=== PATIENT | female | born 1950 | race Caucasian/White ===

== ENCOUNTER 2021-04-26 11:16 | Inpatient (IN) | payer OTHER ==
[~2021-04-26] VITALS: Ht 157.5 cm; Wt 55.9 kg
[2021-04-26 11:56] LABS: BASOPHILS ABSOLUTE AUTO 0.02 K/mm3 (0.00-0.23); BASOPHILS PERCENT AUTO 0 % (0-2); EOSINOPHILS ABSOLUTE AUTO 0.01 K/mm3 (0.00-0.68); EOSINOPHILS PERCENT AUTO 0 % (0-6); Hematocrit 38.9 % (33.0-51.0); Hemoglobin 13.1 g/dL (11.5-16.0); IMMATURE GRAN ABSOLUTE AUTO 0.01 K/mm3 (0.00-0.10); IMMATURE GRAN PERCENT AUTO 0 % (0-1); LYMPHOCYTES PERCENT AUTO 17 % (21-46); MONOCYTES ABSOLUTE AUTO 0.34 K/mm3 (0.16-1.47); MONOCYTES PERCENT AUTO 6 % (4-13); Mean Corpuscular HGB 29.7 pg (26.0-34.0); Mean Corpuscular HGB Conc 33.7 g/dL (31.5-36.5); Mean Corpuscular Volume 88 fL (80-100); Mean Platelet Volume 9.8 fL (9.1-12.4); NEUTROPHILS ABSOLUTE AUTO 4.38 K/mm3 (1.96-9.15); NEUTROPHILS PERCENT AUTO 76 % (41-73); Platelet Count 270 K/mm3 (150-400); RDW Coefficient Variation 13.1 % (11.7-14.2); RDW Standard Deviation 42.6 fL (35.1-46.3); Red Blood Cell Count 4.41 M/mm3 (3.80-5.20); White Blood Cell Count 5.76 K/mm3 (4.00-11.30)
[2021-04-26 12:17] LABS: Alanine Aminotransfer (ALT/SGP 16 U/L (12-78); Albumin, Blood 3.8 g/dL (3.4-5.0); Alk Phos 65 U/L (50-136); Anion Gap 8 mmol/L (6-16); Aspartate Aminotrans (AST/SGOT 18 U/L (12-37); Bilirubin, Total 0.4 mg/dL (0.1-1.0); Blood Urea Nitrogen 15 mg/dL (8-24); Bun/Creatinine Ratio 20.2 (12.0-20.0); CO2, Blood 26 mmol/L (21-32); Calcium, Blood 9.5 mg/dL (8.5-10.1); Chloride, Blood 105 mmol/L (98-108); Creatinine, Blood 0.74 mg/dL (0.40-1.00); Glomerular Filtration Rate >60 (60-); Glucose, Blood 110 mg/dL (70-99); Potassium, Blood 3.5 mmol/L (3.5-5.5); Sodium, Blood 139 mmol/L (136-145); Total Protein, Blood 7.8 g/dL (6.4-8.2)
[2021-04-26 12:19] LABS: International Normalized Ratio 1.02; Prothrombin Time Results 10.7 Sec (9.7-11.5)
[2021-04-26] MEDS ORDERED: ZINC50 M3 PO (16:34)
[2021-04-26] MEDS ORDERED: MULVITA PO (16:35)
--- NOTE | 2021-04-26 19:15 | NUR ---
Shift Summary, The patient came to the med floor this afternoon. She is A/OX4 TO PERSON, PLACE, TIME OR EVENT, The patient is pleasent and cooperative with care. The patient has right sided weakness r/t CVA. She is bed bound. but has sensation in her right arm and right leg. The patient is NPO until speech therapy can is consulted. She had 390 of urine per bladder scan and the patient was able to urinate with 2 prsn assist. The patient denied any chest pain, SOB or pain. There were no acute changes after recieving her on the medical floor.
--- NOTE | 2021-04-27 03:57 | NUR ---
RECEIVED PT IN BED AAOX3. SHE DENIES PAIN. RIGHT ARM FLACCID. WEAKNESS TO RIGHT LEG. PT C/O OF DIFFICULTY URINATING AND DISCOMFORT WHEN SHE TRIES TO VOID. DR. JORDAN MADE AWARE. LAZO INSERTED PER ORDER. 400 CC OF CLEAR YELLOW URINE DRAINED. URINE SPECIMEN COLLECTED AND SENT TO LAB. CALL LIGHT WITHIN REACH. NO CHANGE IN STATUS NOTED. TURNED AND REPOSITIONED FOR COMFORT.
[2021-04-27 04:19] LABS: Source, Urine Catheter
[2021-04-27 04:28] LABS: Bilirubin, Urine Neg (Neg); Blood, Urine 1+ (Neg); Glucose Qualitative, Urine Neg (Neg); Ketones, Urine 4+ (Neg); Leukocyte Esterase, Urine Neg (Neg); Nitrite, Urine Neg (Neg); Protein, Urine 1+ (Neg); Urobilinogen, Urine NORM (Normal)
[2021-04-27 04:54] LABS: Appearance, Urine Clear (Clear); Color, Urine Yellow (P-Yellow)
[2021-04-27 04:55] LABS: Amorphous Light (0-Heavy); Bacteria Not Seen /hpf; Red Blood Cells, Urine 0-2 /hpf (0-2); Squamous Epithelial Cells Not Seen /hpf (Few); White Blood Cells, Urine Not Seen /hpf (0-5)
[2021-04-27 05:05] LABS: BASOPHILS ABSOLUTE AUTO 0.04 K/mm3 (0.00-0.23); BASOPHILS PERCENT AUTO 1 % (0-2); EOSINOPHILS ABSOLUTE AUTO 0.02 K/mm3 (0.00-0.68); EOSINOPHILS PERCENT AUTO 0 % (0-6); Hematocrit 33.8 % (33.0-51.0); Hemoglobin 11.4 g/dL (11.5-16.0); IMMATURE GRAN ABSOLUTE AUTO 0.01 K/mm3 (0.00-0.10); IMMATURE GRAN PERCENT AUTO 0 % (0-1); LYMPHOCYTES ABSOLUTE AUTO 1.34 K/mm3 (0.84-5.20); LYMPHOCYTES PERCENT AUTO 22 % (21-46); MONOCYTES ABSOLUTE AUTO 0.43 K/mm3 (0.16-1.47); MONOCYTES PERCENT AUTO 7 % (4-13); Mean Corpuscular HGB 29.9 pg (26.0-34.0); Mean Corpuscular HGB Conc 33.7 g/dL (31.5-36.5); Mean Corpuscular Volume 89 fL (80-100); NEUTROPHILS ABSOLUTE AUTO 4.37 K/mm3 (1.96-9.15); NEUTROPHILS PERCENT AUTO 70 % (41-73); Platelet Count 223 K/mm3 (150-400); RDW Coefficient Variation 13.2 % (11.7-14.2); RDW Standard Deviation 42.9 fL (35.1-46.3); Red Blood Cell Count 3.81 M/mm3 (3.80-5.20); White Blood Cell Count 6.21 K/mm3 (4.00-11.30)
[2021-04-27 05:37] LABS: Anion Gap 7 mmol/L (6-16); Blood Urea Nitrogen 11 mg/dL (8-24); Bun/Creatinine Ratio 20.7 (12.0-20.0); CO2, Blood 24 mmol/L (21-32); Calcium, Blood 8.3 mg/dL (8.5-10.1); Chloride, Blood 109 mmol/L (98-108); Cholesterol 187 mg/dL (50-200); Creatinine, Blood 0.53 mg/dL (0.40-1.00); Glomerular Filtration Rate >60 (60-); Glucose, Blood 92 mg/dL (70-99); HDL Cholesterol 63 mg/dL (>39); LDL/HDL RATIO 1.7; Low Density Lipoprotein Chol 108 mg/dL (0-110); Potassium, Blood 3.1 mmol/L (3.5-5.5); Sodium, Blood 140 mmol/L (136-145); Triglycerides 78 mg/dL (30-160); Very Low Density Lipoprot Chol 15 mg/dL (6-32)
--- NOTE | 2021-04-27 17:16 | NUR ---
SHIFT SUMMARY PATIENT ALERT AND ORIENTED THROUGHOUT THIS SHIFT. PATIENT CONTINUES TO HAVE LITTLE MOVEMENT TO HER RIGHT SIDE. PATIENT WORKED WITH SPEACH THERAPY THIS AM, ADVANCED TO A PUREE'D DIET. PATIENT'S FRIEND IN THE ROOM THIS AFTERNOON TO VISIT. PATIENT MEDICATED 1X THIS AFTERNOON FOR VERY HIGH HYPERTENSION, RESPONDED WELL TO PRN MEDICATION. PATIENT CURRENTLY SITTING UP IN BED WATCHING TELEVISION.
--- NOTE | 2021-04-28 04:45 | NUR ---
EQUAL EMPLOYMENT OPPORTUNITY OFFICER SUMMARY PT A/O X4. DENIES PAIN, NAUSEA, SOB. MEDICATED FOR HTN PER EMAR OVERNIGHT. RIGHT ARM IS FLACID, RIGHT LEG HAS GROSS MOVEMENT. SLURRED SPEECH WITH RIGHT SIDED FACIAL DROOP. LAZO NICOLASA PATENT AND DRAINING TO GRAVITY. NO ACUTE CHANGES. CALL LIGHT WITHIN REACH, WILL CONTINUE TO MONITOR.
[2021-04-28 06:15] LABS: Albumin, Blood 3.2 g/dL (3.4-5.0); Anion Gap 8 mmol/L (6-16); Blood Urea Nitrogen 9 mg/dL (8-24); Bun/Creatinine Ratio 14.1 (12.0-20.0); CO2, Blood 23 mmol/L (21-32); Calcium, Blood 9.1 mg/dL (8.5-10.1); Chloride, Blood 107 mmol/L (98-108); Creatinine, Blood 0.64 mg/dL (0.40-1.00); Glomerular Filtration Rate >60 (60-); Glucose, Blood 91 mg/dL (70-99); Phosphorus, Blood 2.5 mg/dL (2.5-4.9); Potassium, Blood 3.2 mmol/L (3.5-5.5); Sodium, Blood 138 mmol/L (136-145)
--- NOTE | 2021-04-28 17:17 | NUR ---
SHIFT SUMMARY: NO ACUTE EVENTS. NO EVENTS ON TELEMETRY, SR 80'S. NEURO EXAM STABLE; R FACIAL DROOP, TONGUE DEVIATES TO THE RIGHT, R ARM FLACCID, SPEECH SLURRED. DOES NOT LIKE PUREED FOOD. HYPERTENSIVE 190/100'S; MEDICATED WITH HYDRALAZINE X 2, BP DECREASED TO 140/90'S. LAZO DRAINING YELLOW URINE. DENIED PAIN. WORKED WITH PHYSICAL THERAPY, WAS ABLE TO MARCH IN PLACE A BIT PER THERAPIST. HAD VISIT FROM FRIEND THIS AFTERNOON.
--- NOTE | 2021-04-29 03:38 | NUR ---
SHIFT SUMMARY PATIENT HAS R SIDED FACIAL DROOP AND HER R ARM IS FLACCID. SHE HAS SLURRED SPEECH. PATIENT IS SUCTIONING HERSELF FOR INCREASED SECRETIONS. LAZO DRAINING YELLOW URINE. PATIENT DENIES PAIN. ON TELE WITH SINUS RHYTHM AND 1ST DEGREE BLOCK. NO ACUTE CHANGES. CALL LIGHT WITHIN REACH. PATIENT RESTING AT THIS TIME.
[2021-04-29 04:59] LABS: BASOPHILS ABSOLUTE AUTO 0.04 K/mm3 (0.00-0.23); BASOPHILS PERCENT AUTO 1 % (0-2); EOSINOPHILS ABSOLUTE AUTO 0.04 K/mm3 (0.00-0.68); EOSINOPHILS PERCENT AUTO 1 % (0-6); Hematocrit 36.9 % (33.0-51.0); Hemoglobin 12.6 g/dL (11.5-16.0); IMMATURE GRAN ABSOLUTE AUTO 0.02 K/mm3 (0.00-0.10); IMMATURE GRAN PERCENT AUTO 0 % (0-1); LYMPHOCYTES ABSOLUTE AUTO 1.26 K/mm3 (0.84-5.20); LYMPHOCYTES PERCENT AUTO 18 % (21-46); MONOCYTES ABSOLUTE AUTO 0.57 K/mm3 (0.16-1.47); MONOCYTES PERCENT AUTO 8 % (4-13); Mean Corpuscular HGB Conc 34.1 g/dL (31.5-36.5); Mean Corpuscular Volume 88 fL (80-100); NEUTROPHILS PERCENT AUTO 73 % (41-73); Platelet Count 251 K/mm3 (150-400); RDW Coefficient Variation 13.4 % (11.7-14.2); RDW Standard Deviation 43.2 fL (35.1-46.3); White Blood Cell Count 7.13 K/mm3 (4.00-11.30)
[2021-04-29 05:45] LABS: Albumin, Blood 2.9 g/dL (3.4-5.0); Anion Gap 8 mmol/L (6-16); Blood Urea Nitrogen 14 mg/dL (8-24); Bun/Creatinine Ratio 20.6 (12.0-20.0); CO2, Blood 24 mmol/L (21-32); Chloride, Blood 105 mmol/L (98-108); Creatinine, Blood 0.68 mg/dL (0.40-1.00); Glomerular Filtration Rate >60 (60-); Glucose, Blood 103 mg/dL (70-99); Phosphorus, Blood 3.1 mg/dL (2.5-4.9); Potassium, Blood 3.2 mmol/L (3.5-5.5); Sodium, Blood 137 mmol/L (136-145)
--- NOTE | 2021-04-29 18:23 | NUR ---
PT AAOX3 REMAIN STABLE, NO ACTE DISTRESS, DENIES PAIN. LAZO PATENT AND CARE DONE.ASPIRATION PRECAUTION MAINTAINED,ASSISTED NEEDED. PRN HYDRALAZINE GIVEN FOR INCREASED B/P. VISITED WITH FAMILY. TOLERATED ALL MEDICATIONS, CALL LIGHT IN PLACE. WILL CONTINUE TO MONITOR.
--- NOTE | 2021-04-30 02:38 | NUR ---
SHIFT SUMMARY NO ACUTE CHANGES. PT RESTING AT THIS TIME. PT DENIES PAIN. CALL LIGHT WITHIN REACH. SLURRED SPEECH AND R FACIAL DROOP CONTINUES. A&O X 4.
[2021-04-30 07:32] LABS: Albumin, Blood 2.8 g/dL (3.4-5.0); Anion Gap 7 mmol/L (6-16); Blood Urea Nitrogen 17 mg/dL (8-24); Bun/Creatinine Ratio 25.7 (12.0-20.0); CO2, Blood 25 mmol/L (21-32); Chloride, Blood 104 mmol/L (98-108); Creatinine, Blood 0.66 mg/dL (0.40-1.00); Glomerular Filtration Rate >60 (60-); Glucose, Blood 105 mg/dL (70-99); Phosphorus, Blood 3.7 mg/dL (2.5-4.9); Potassium, Blood 3.4 mmol/L (3.5-5.5); Sodium, Blood 136 mmol/L (136-145)
--- NOTE | 2021-04-30 18:43 | NUR ---
PATIENT IS ALERT AND ORIENTED AND COOPERATIVE WITH CARE. RIGHT SIDED DEFICITS. LAZO IS IN PLACE AND DRAINING. BM TODAY USING THE BEDPAN. MEDICATED FOR HYPERTENSION THIS AFTERNOON. HER LAST BP WAS 142/86. WORKED WITH PT AND OT TODAY. WILL CONTINUE TO MONITOR
--- NOTE | 2021-05-01 04:16 | NUR ---
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 PT OT/ ST. Puree diet pt has liquids thin by cup. not really drinking this shift PT has nonprod hacking cough. Hypertensive, PTN hydralazine 10 mg given for SBP 164. On tele monitor SR 67. HAs brumfield cath placed for urinary retention, drained 1200 ml clear yellow urine. PT to wear rt sling upper extremity to prevent subluxation. Stroke positioning. Able to communicate. Planning to dc to stroke rehab unit on DC.
[2021-05-01 05:34] LABS: Albumin, Blood 2.9 g/dL (3.4-5.0); Anion Gap 7 mmol/L (6-16); Blood Urea Nitrogen 17 mg/dL (8-24); Bun/Creatinine Ratio 26.7 (12.0-20.0); CO2, Blood 25 mmol/L (21-32); Calcium, Blood 9.1 mg/dL (8.5-10.1); Chloride, Blood 102 mmol/L (98-108); Creatinine, Blood 0.64 mg/dL (0.40-1.00); Glomerular Filtration Rate >60 (60-); Glucose, Blood 102 mg/dL (70-99); Phosphorus, Blood 3.7 mg/dL (2.5-4.9); Potassium, Blood 3.5 mmol/L (3.5-5.5); Sodium, Blood 134 mmol/L (136-145)
--- NOTE | 2021-05-01 17:07 | NUR ---
SHIFT SUMMARY PATIENT DENIES PAIN, NAUSEA, AND SHORTNESS OF BREATH. PATIENT WORKED WITH PT AND OT. PATIENT UP IN CHAIR TWO ASSIST WITH GAIT BELT AND JULIO WALKER. SLING ON WHEN UP OR RIGHT ARM SUPPORTED WITH PILLOW IN BED. ADEQUATE PO INTAKE, WORKED WITH SPEECH THERAPY TODAY. CLIFTON JERONIMO. PLEASANT AND COOPERATIVE CARE.
--- NOTE | 2021-05-02 03:56 | NUR ---
DR SIFUENTES updated on unable to void bladder scan showed [address] cath x 2 for PVR greater than 350 ml then reinsert brumfield for PVR greater than 350 ml. PT has cough nonproductive, irritates PT cough med rx obtained PRN.
--- NOTE | 2021-05-02 05:33 | NUR ---
PT with acute CVA with RT hemiparesis continues with rt facial droop & flaccid rt UE weak RT LE . UP during day to BSC. Room air, PT has nonprod irritating cough relieved by Robitussin AC. Bladder scanning post brumfield cath removal. Order to straight cath x 2 PVR greater than 350 ml, then reinsert brumfield is PVR still above 350. Incont void x 1 PVR 174. Working with PT OT
--- NOTE | 2021-05-02 16:41 | NUR ---
SHIFT SUMMARY PATIENT MEDICATED X1 FOR COUGH WITH. DENIES NAUSEA AND SHORTNESS OF BREATH. REPORTS ACHES IN RIGHT ARM BUT DECLINES PAIN MEDICATION. WORKED WITH PT/OT. UP TWO ASSIST IN CHAIR WITH GAIT BELT AND HEMIWALKER. FLUIDS ENCOURAGED. PLEASANT AND COOPERATIVE WITH CARE. PENDING IRU PLACEMENT WHEN BED AVAILABLE.
--- NOTE | 2021-05-03 03:48 | NUR ---
SHIFT SUMMARY PATIENT HAD NO ACUTE CHANGES OBSERVED. AXOX 3 AND TWO ASSIST STAND PIVOT TO BSC. TAKES MEDICATION ONE EACH IN APPLESAUCE. RS WEAKNESS. PIV REMAINS INTACT. BATTERY REPAIRER REPORTS NSR 77. DENIES PAIN, SOB, AND N/V. VSS/AFEBRILE. REPORTED COUGH X ONE AND GUAIFENESIN WITH CODEINE GIVEN PER EMAR. PATIENT VOIDING T/O SHIFT. CALL LIGHT IN REACH. BED IN LOWEST POSITION. WILL CONTINUE TO MONITOR UNTIL DAY SHIFT NURSE ASSUMES CARE.
--- NOTE | 2021-05-03 17:36 | NUR ---
PT AOX3 AND COOPERATIVE OF CARE. PT SEEMS VERY POSITIVE AND READY TO HELP STAND WITH HER TRANSFERS AND WORK WITH STAFF. PT WAS UP IN CHAIR WITH GAITBELT AND TOLERATED WELL. BLADDER SCAN POST VOID WAS 96 , PT IS INCONTENT AT THIS TIME. CALL LIGHT WITHIN REACH WILL CONTINUE TO MONITOR.
--- NOTE | 2021-05-04 03:47 | NUR ---
SHIFT SUMMARY PATIENT HAD NO ACUTE CHANGES OBSERVED. AXOX 3 AND TWO ASSIST TO BSC. RS WEAKNESS. PIV REMAINS INTACT. SHEET METAL MECHANIC REPORTS NSR W/ST ELEVATED @ 77. TAKES MEDICATION ONE EACH IN APPLESAUCE. DENIES PAIN, SOB, AND N/V. VSS/AFEBRILE. COOPERATIVE WITH CARE. CALL LIGHT IN REACH. BED IN LOWEST POSITION. WILL CONTINUE TO MONITOR UNTIL DAY SHIFT NURSE ASSUMES CARE.
--- NOTE | 2021-05-04 18:19 | NUR ---
SHIFT SUMMARY PATIENT IS A/O X3, PLEASANT AND COOPERATIVE WITH CARE. PATIENT IS A 2 PERSON STAND PIVOT ASSIST FROM THE BED TO THE CHAIR, AND ICONTINENT AT THIS TIME. ON RA, PATIENT WORKED WITH PHYSICAL THERAPY, OCCUPATIONAL THERAPY, AND SPEECH THERAPY THIS SHIFT. PATIENT IS AWAITING APPROVAL FOR AN IRU FOR STRENGHTENING AND REHAB. NO ACUTE CHANGES THIS SHIFT THIS NURSE WILL CONTINUE TO CARE FOR PATIENT UNTIL REPORT IS GIVEN TO ONCOMING NURSE.
--- NOTE | 2021-05-05 04:34 | NUR ---
SUMMARY NO NEW ISSUES NOTED. PT SLEPT WELL T/O SHIFT. PT HAD NOTED VOIDS DURING SHIFT. PT CURRENTLY SLEEPING IN NO DISTRESS. CALL LIGHT IN REACH AND BED ALARM ON.
--- NOTE | 2021-05-05 17:12 | NUR ---
SHIFT SUMMARY PATIENT IS A/O X4, PLEASANT AND COOPERATIVE WITH CARE. PATIENT STILL HAS RASH PRESENT ON UPPER BACK. LOTION APPLIED FOR COMFORT. PATIENT'S DAUGHTER WAS AT THE BEDSIDE THIS AFTERNOON. PATIENT RECEIVED BOWEL CARE THIS SHIFT. NO ACUTE CHANGES FOR THE PATIENT THIS SHIFT VITAL SIGNS STABLE. PATIENT IS STILL WAITING ON PLACEMENT AT AN IRU. THIS NURSE WILL CONTINUE TO CARE FOR THE PATIENT UNTIL SHIFT REPORT IS GIVEN TO THE ONCOMING NURSE.
--- NOTE | 2021-05-06 03:27 | NUR ---
SHIFT SUMMARY NO ACUTE CHANGES TO REPORT THIS SHIFT. RIGHT SIDED WEAKNESS REMAINS UNNCHANGED. PT A/OX4 PLESANT WITH CARE, PT HAS DENIED NEEDS T/O SHIFT. BED IN LOWEST POSITION, CALL LIGHT WITHIN REACH.
--- NOTE | 2021-05-06 17:24 | NUR ---
SHIFT SUMMARY PATIENT IS A/O X4, PLEASANT AND COOPERATIVE WITH CARE. PATIENT IS ON RA, TWO PERSON PIVOT WITH A JULIO WALKER, RIGHT SIDED WEAKNESS. NO ACUTE CHANGES THIS SHIFT, VITAL SIGNS STABLE. PATIENT IS WAITING FOR PLACEMENT AT AN IRU, POSSIBLY LEAVING TOMORROW. THIS NURSE WILL CONTINUE TO MONITOR THE PATIENT UNTIL REPORT IS GIVEN TO ONCOMING NURSE.
[2021-05-06 22:07] LABS: ALDOS/RENIN RATIO 20.1 (0.0-30.0); ALDOSTERONE 5.3 ng/dL (0.0-30.0)
--- NOTE | 2021-05-07 04:33 | NUR ---
VITAL SIGNS STABLE. NO COMPLAINTS OF PAIN. NO NEW ISSUES IDENTIFIED. SAFETY MEASURES IN PLACE. WILL CONTINUE TO MONITOR PATIENT UNTIL CARE IS ASSUMED BY DAY NURSE
--- NOTE | 2021-05-08 06:17 | NUR ---
SHIFT SUMMARY: VS WNL, AFBRILE. NO PAIN. RIGHT SIDE WEAKNESS. ELEVATES RUE ON PILLOW WHEN IN BED. ABLE TO USE JULIO WALKER WITH SBA. INCONTIENT OF URINE. SLEPT WELL T/O THE NIGHT. NO FURTHER CHANGES TO REPORT. CALL LIGHT IS IN REACH.
--- NOTE | 2021-05-08 17:55 | NUR ---
Alert and oriented x3 , able to make needs known , speach is slurred. vital signs are stable ,SBP in 150s, continue on hypertensive medications , no adverse effects noted. Right side weakness noted. worked with PT/ OT for strength and endurance. Used John walkwer for transfer with SBA. Call appropriately and call light within reach . Continue on monitor.
--- NOTE | 2021-05-08 19:20 | NUR ---
ASSUMED CARE. JEANETH IS DOING WELL, STATES SHE GOT UP IN THE CHAIR TODAY AND USED HER JULIO WALKER. SHE STILL VERY WEAK ON THE RIGHT SIDE BUT IS FOLLOWING PT ORDERS TO HELPING HERSELF GET BETTER. DENIES ANY NEEDS AT THIS TIME. ATTENDS IS DRY. CALL LIGHT IN REACH.
--- NOTE | 2021-05-09 06:24 | NUR ---
SHIFT SUMMARY: JEANETH HAS HAD A VERY GOOD NIGHT. SHE SLEPT WELL. NO ACUTE CHANGES OR CONCERNS. VS WNL. AFEBRILE. NO PAIN OR DISCOMFORT. NO NEW NEURO DEFICITS. BED ALARM ON. CALL LIGHT IN REACH.
[2021-05-09 06:56] LABS: Anion Gap 4 mmol/L (6-16); Blood Urea Nitrogen 19 mg/dL (8-24); Bun/Creatinine Ratio 29.1 (12.0-20.0); CO2, Blood 28 mmol/L (21-32); Calcium, Blood 9.3 mg/dL (8.5-10.1); Chloride, Blood 103 mmol/L (98-108); Creatinine, Blood 0.65 mg/dL (0.40-1.00); Glomerular Filtration Rate >60 (60-); Glucose, Blood 98 mg/dL (70-99); Potassium, Blood 3.9 mmol/L (3.5-5.5); Sodium, Blood 135 mmol/L (136-145)
--- NOTE | 2021-05-09 18:49 | NUR ---
Alert and oriented x 3, able to make needs known.Denies any headache , pain , nausea , chest pain , or dizziness. vital signs are stable. Left side weakness noted. One person assist with ADLS. Used mimi walker for transfer. Pleasant and cooperative. Call appropriately and call light within reach.
--- NOTE | 2021-05-10 04:11 | NUR ---
PT IS PLEASANT. AAO. DENIES PAIN. SLEPT WELL. NO ACUTE CHANGES. NEURO STATUS UNCHANGED. ATTEND IN PLACE. CALL LIGHT WITHIN REACH. VSS.
[2021-05-10] MEDS ORDERED: ASPI81CH PO (15:49)
[2021-05-10] MEDS ORDERED: ATOR40TA PO (15:50)
[2021-05-10] MEDS ORDERED: HYDCHL25 PO (15:50)
[2021-05-10] MEDS ORDERED: LISI20 PO (15:51)
[2021-05-10] MEDS ORDERED: POTCHL20ER PO (15:52)
[2021-05-10 17:03] LABS: Influenza A, PCR NEGATIVE (NEGATIVE); Influenza B, PCR NEGATIVE (NEGATIVE); Resp Syncytial Virus, PCR NEGATIVE (NEGATIVE); SARS-Cov-2 (COVID-19) PCR, MMC NEGATIVE (NEGATIVE)
--- NOTE | 2021-05-10 17:26 | NUR ---
SHIFT SUMMARY NO ACUTE CHANGES THIS SHIFT WITH PATIENT. SHE IS DOING WELL WITH PT AND OT. PT WILL HOPEFULLY BE TRANSFERRED TO IRU TOMORROW AFTERNOON. WILL CONTINUE TO MONITOR.
--- NOTE | 2021-05-11 06:38 | NUR ---
SHIFT SUMMARY PT IS A 70 Y/O FEMALE, ADMITTED FOR AN ACUTE CVA. SHE IS A&O X 4, WITH MILD R-SIDE WEAKNESS AND R FACIAL DROOP NOTED. PT IS 1PA, CONT/INCONTINENT. NO C/O ACUTE PAIN, NAUSEA OR SOB. VITAL SIGNS STABLE. PT SLEPT WELL THROUGH THE NIGHT. NO ACUTE CHANGES IN PT CONDITION NOTED. WILL CONTINUE TO MONITOR AND TREAT PER EMAR UNTIL HAND OFF TO DAY SHIFT RN.
--- NOTE | 2021-05-11 18:05 | NUR ---
SHIFT SUMMARY NO ACUTE CHNAGES THIS SHIFT. PTS DISCHARGED WAS DELAYED BY A DAY, HOPEFULL TO DISCHARGE TOMORROW. WILL CONTINUE TO MONITOR.
--- NOTE | 2021-05-12 06:05 | NUR ---
SHIFT SUMMARY PATIENT ALERT AND ORIENTED. NO COMPLAINTS OF PAIN OR SHORTNESS OF BREATH. SLEPT WELL, NO ACUTE ISSUES OVERNIGHT. CALL LIGHT WITHIN REACH. REPORT GIVEN TO ONCOMING RN.
--- NOTE | 2021-05-12 16:37 | NUR ---
Sat down with pt this morning, and recognized each other right away. In our previous visit, she was actually planning to return home at that time. However, the rehab center in [place] has agreed to take her for inpatient, and this is what the patient wants. She is motivated to get back into the best shape possible. She does not wish to change her POLST at this time. I will remain available.
--- NOTE | 2021-05-12 18:29 | NUR ---
Alert and oriented x3 , able to make needs known. One person assist with ADLS. Denies any pain. No chest pain , dizziness ,headache or nausea reported. Used mimi walker for transfer with one person assist. BP was elevated this morning , however received a new order for norvac 5 mg po daily . Vital signs are stable now 139/94. Continue to monitor.
--- NOTE | 2021-05-13 05:21 | NUR ---
SHIFT SUMMARY PATIENT ALERT AND ORIENTED. NO COMPLAINTS OF PAIN OR SHORTNESS OF BREATH. NO ACUTE ISSUES NOTED OVERNIGHT. SLEPT WELL. CALL LIGHT WITHIN REACH. REPORT GIVEN TO ONCOMING RN.
--- NOTE | 2021-05-13 17:59 | NUR ---
Alert and oriented x3 , able to make needs known. Denies any pain. one person assist with ADLS. Used mimi-walker for transfer with SBA. Vital signs are stable. No changes in LOC.Denies any headache , dizziness and chest pain. Call appropraitely and call light within reach. Continue to monitor.
--- NOTE | 2021-05-14 05:08 | NUR ---
SHIFT SUMMARY PATIENT ALERT AND ORIENTED. HAD NO COMPLAINTS OF PAIN OR SHORTNESS OF BREATH. SLEPT WELL OVERNGIHT. NO ACUTE ISSUES NOTED. BED IN LOWEST POSITION WITH WHEELS LOCKED AND ALARM ON. CALL LIGHT WITHIN REACH. REPROT GIVEN TO ONCOMING RN.
--- NOTE | 2021-05-14 19:21 | NUR ---
Patient is alert and oriented x3 , denies any pain , dizziness and headache. Take pills whole with applesauce. One person assist with ADLS, Used mimi-walker for transfer. Right sided weakness noted and strength is improving. vital signs are stable. Used bedside commode with SBA. Call appropriately and call light within reach. Continue to monitor. Discharged is postponed to friday.
--- NOTE | 2021-05-15 04:10 | NUR ---
BAKER TEST SUMMARY ADMITTED FOR CVA. PT IS FULL CODE. PLAN FOR POSSIBLE PLACEMENT FOR REHAB. PT HAS SOME WEAKNESS WITH FINE MOTOR SKILLS TO THE RIGHT UPPER AND LOWER EXTREMITIES BUT GROSS MOTOR INTACT. PT WITH SOME SLURRED SPEECH AND SOME FACIAL DROOP. SHE HAS BEEN RESTING THROUGHOUT THE NIGHT. IS VERY COOPERATIVE AND HELPFUL WITH HER CARE. NO OTHER CONCERNS THIS SHIFT.
[2021-05-15 08:42] LABS: SARS-Cov-2 (COVID-19) PCR, MMC NEGATIVE (NEGATIVE)
[2021-05-15] MEDS ORDERED: AMLO5 PO (11:06)
[2021-05-15] MEDS ORDERED: FLUT.05NI (11:07)
--- NOTE | 2021-05-15 13:00 | NUR ---
PATIENT WENT TO SURGERY
--- NOTE | 2021-05-15 17:11 | NUR ---
SHIFT SUMMARY PATIENT LAYING IN BED WATCHING TV. ALERT AND ORIENTED. FINE MOTOR WEAKNESS NOTED ON RIGHT SIDE. 1P ASSIST AND USES JULIO-WALKER. TAKES PILLS WHOLE WITH APPLESAUCE. PATIENT VERY HAPPY SHE WAS ABLE TO SHOWER TODAY. WORKED WITH PT TODAY. TOOK IV OUT PER PATIENT REQUEST. PATIENT STATED IV WAS BOTHERING HER AND ASKED IF IT COULD BE TAKEN OUT. VS STABLE. WILL CONTINUE TO MONITOR.
--- NOTE | 2021-05-16 04:14 | NUR ---
ORNAMENTAL PAINTER SUMMARY ADMITTED FOR CVA. PT IS FULL CODE. PT REPORTS INCREASING STRENGTH TO HER RIGHT SIDE. PT IS EXCITED TO GO TO THE REHAB FACILITY IN [place] LATER TODAY. PT HAS NO COMPLAINTS. NO OTHER CONCERNS THIS SHIFT.
--- NOTE | 2021-05-16 14:23 | NUR ---
DISCHARGED AT 1148 WITH INSTRUCTIONS. WHEELCHAIR TRANSPORT TO [facility]. REPORT GIVEN TO RECEIVING NURSE. SENT HOME WITH BELONGINGS. PATIENT FORGET TOOTHBRUSH DEVICE. ATTEMPTED TO CALL PATIENT TO ASK HOW TO SEND FORGOTTEN BELONGING. WILL CONTINUE TO TRY TO CONTACT PATIENT AND FACILTY.
== END 2021-05-16 11:48 | DRG 65 ==
LOC: ER 11:16 → MEDS 15:03 → ENPENDDIS 05-10 18:26 → MEDS 05-16 11:48
PROVIDERS: Family Medicine; Internal Medicine; Nurse Practitioner Acute Care; Physician Assistant; ADMIT Internal Medicine
DX: I63.89 Other cerebral infarction (principal); G81.91 Hemiplegia, unspecified affecting right dominant side; R29.810 Facial weakness; R47.81 Slurred speech; R47.02 Dysphasia; E87.6 Hypokalemia; Z20.822 Contact with and (suspected) exposure to COVID-19; I10 Essential (primary) hypertension; D64.9 Anemia, unspecified; R47.1 Dysarthria and anarthria; I67.2 Cerebral atherosclerosis; Z88.0 Allergy status to penicillin
CPT/HCPCS: 0241U; 36415; 70450; 70496; 70498; 74230; 80048; 80053; 80061; 80069; 81001; 82088; 82947; 83036; 84244; 84443; 85025; 85610; 92507; 92526; 92610; 92611; 93005; 93010; 93306; 96374; 97110; 97112; 97116; 97116-CQ; 97161; 97166; 97530; 97535; 99285-25; A9270; J0360; J1650; J7030; Q9967; U0004

== ENCOUNTER → 2023-11-11 | Outpatient (CLI) | payer OTHER ==
[~2023-11-11] MED LIST: AMLO5 PO; ASPI81CH PO; ATOR40TA PO; FLUT.05NI; HYDCHL25 PO; LISI20 PO; MULVITA PO; POTCHL20ER PO; ZINC50 M3 PO
[2023-11-11 12:50] LABS: BASOPHILS ABSOLUTE AUTO 0.02 K/mm3 (0.00-0.23); BASOPHILS PERCENT AUTO 0 % (0-2); EOSINOPHILS ABSOLUTE AUTO 0.07 K/mm3 (0.00-0.68); EOSINOPHILS PERCENT AUTO 1 % (0-6); Hematocrit 32.3 % (33.0-51.0); Hemoglobin 10.2 g/dL (11.5-16.0); IMMATURE GRAN ABSOLUTE AUTO 0.02 K/mm3 (0.00-0.10); IMMATURE GRAN PERCENT AUTO 0 % (0-1); LYMPHOCYTES ABSOLUTE AUTO 0.75 K/mm3 (0.84-5.20); LYMPHOCYTES PERCENT AUTO 10 % (21-46); MONOCYTES ABSOLUTE AUTO 0.38 K/mm3 (0.16-1.47); MONOCYTES PERCENT AUTO 5 % (4-13); Mean Corpuscular HGB 25.2 pg (26.0-34.0); Mean Corpuscular HGB Conc 31.6 g/dL (31.5-36.5); Mean Corpuscular Volume 80 fL (80-100); Mean Platelet Volume 8.4 fL (9.1-12.4); NEUTROPHILS ABSOLUTE AUTO 6.19 K/mm3 (1.96-9.15); NEUTROPHILS PERCENT AUTO 83 % (41-73); Platelet Count 376 K/mm3 (150-400); RDW Coefficient Variation 17.1 % (11.7-14.2); RDW Standard Deviation 49.6 fL (35.1-46.3); Red Blood Cell Count 4.04 M/mm3 (3.80-5.20); White Blood Cell Count 7.43 K/mm3 (4.00-11.30)
[2023-11-11 12:53] LABS: Bacteria Rare /hpf; Source, Urine Clean Catch; Squamous Epithelial Cells Few /hpf (Few)
[2023-11-11 12:56] LABS: Potassium, Blood 3.3 mmol/L (3.5-5.5)
== END ==
LOC: LAB SHORT 12:37 → LAB 12:37
PROVIDERS: Physician Assistant
DX: R31.9 Hematuria, unspecified (principal); D64.9 Anemia, unspecified
CPT/HCPCS: 80051; 81015; 85025; 87086

== ENCOUNTER 2023-12-09 20:08 | Inpatient (IN) | payer OTHER ==
[~2023-12-09] VITALS: Ht 152.4 cm; Wt 59.0 kg
[~2023-12-09 20:08] MED LIST changes: +AMLODIPINE BESY10 MG PO; +Aspir 8181 MG PO; +CEPH500 PO; +LIPITOR80 MG PO; +PRAZ2 PO
[2023-12-09 20:44] LABS: BASOPHILS ABSOLUTE AUTO 0.03 K/mm3 (0.00-0.23); BASOPHILS PERCENT AUTO 0 % (0-2); EOSINOPHILS ABSOLUTE AUTO 0.06 K/mm3 (0.00-0.68); EOSINOPHILS PERCENT AUTO 1 % (0-6); Hematocrit 24.1 % (33.0-51.0); Hemoglobin 7.6 g/dL (11.5-16.0); IMMATURE GRAN ABSOLUTE AUTO 0.03 K/mm3 (0.00-0.10); IMMATURE GRAN PERCENT AUTO 0 % (0-1); LYMPHOCYTES ABSOLUTE AUTO 1.05 K/mm3 (0.84-5.20); LYMPHOCYTES PERCENT AUTO 11 % (21-46); MONOCYTES ABSOLUTE AUTO 0.63 K/mm3 (0.16-1.47); MONOCYTES PERCENT AUTO 6 % (4-13); Mean Corpuscular HGB 24.8 pg (26.0-34.0); Mean Corpuscular HGB Conc 31.5 g/dL (31.5-36.5); Mean Corpuscular Volume 79 fL (80-100); Mean Platelet Volume 8.2 fL (9.1-12.4); NEUTROPHILS ABSOLUTE AUTO 8.21 K/mm3 (1.96-9.15); NEUTROPHILS PERCENT AUTO 82 % (41-73); Platelet Count 500 K/mm3 (150-400); RDW Coefficient Variation 17.2 % (11.7-14.2); RDW Standard Deviation 49.1 fL (35.1-46.3); Red Blood Cell Count 3.06 M/mm3 (3.80-5.20); White Blood Cell Count 10.01 K/mm3 (4.00-11.30)
[2023-12-09 20:52] LABS: Base Excess Venous -1.5 mmol/L; Bicarbonate Venous 23.6 mmol/L (24.0-30.0); PCO2 Venous 22.4 mmHg (38-42); pH Blood Venous 7.57 (7.34-7.37)
[2023-12-09 21:13] LABS: Albumin, Blood 2.2 g/dL (3.4-5.0); Albumin/Globulin Ratio 0.5 (0.8-1.8); Bilirubin, Total 0.5 mg/dL (0.1-1.0); Bun/Creatinine Ratio 25.8 (12.0-20.0); Calcium, Blood 9.2 mg/dL (8.5-10.1); Creatinine, Blood 0.7 mg/dL (0.40-1.00); Globulin, Blood 4.5 g/dL (2.2-4.0); Potassium, Blood 3.9 mmol/L (3.5-5.5); Total Protein, Blood 6.7 g/dL (6.4-8.2)
[2023-12-09] MEDS ORDERED: CefTRIAXone Sodium 1,000 MG in NS 50 ML IV ONE (22:20)
[2023-12-10] VITALS (35 sets, daily range): BP systolic 95–136; BP diastolic 51–96
[2023-12-10] MEDS ORDERED: Ondansetron HCl 2 MG / ML 2ML Vial IV ONE (00:20)
[2023-12-10] MEDS ORDERED: FentaNYL Citrate 50 MCG/ML 2 ML Injection IV ONE (00:20)
[2023-12-10] MEDS ORDERED: Ondansetron HCl 2 MG / ML 2ML Vial IV PRN (01:00)
[2023-12-10] MEDS ORDERED: Ipratropium/Albuterol SulF 2.5-0.5MG/3 ML Amp INH PRN (01:00)
[2023-12-10 01:48] LABS: Influenza A, PCR NEGATIVE (NEGATIVE); Influenza B, PCR NEGATIVE (NEGATIVE); Resp Syncytial Virus, PCR NEGATIVE (NEGATIVE); SARS-Cov-2 (COVID-19) PCR, MMC NEGATIVE (NEGATIVE)
[2023-12-10 02:11] LABS: International Normalized Ratio 1.03
[2023-12-10 02:28] LABS: BASOPHILS ABSOLUTE AUTO 0.02 K/mm3 (0.00-0.23); BASOPHILS PERCENT AUTO 0 % (0-2); EOSINOPHILS ABSOLUTE AUTO 0.02 K/mm3 (0.00-0.68); EOSINOPHILS PERCENT AUTO 0 % (0-6); Hematocrit 20.7 % (33.0-51.0); Hemoglobin 6.5 g/dL (11.5-16.0); IMMATURE GRAN ABSOLUTE AUTO 0.03 K/mm3 (0.00-0.10); IMMATURE GRAN PERCENT AUTO 0 % (0-1); LYMPHOCYTES ABSOLUTE AUTO 0.88 K/mm3 (0.84-5.20); LYMPHOCYTES PERCENT AUTO 12 % (21-46); MONOCYTES ABSOLUTE AUTO 0.47 K/mm3 (0.16-1.47); MONOCYTES PERCENT AUTO 6 % (4-13); Mean Corpuscular HGB 24.5 pg (26.0-34.0); Mean Corpuscular HGB Conc 31.4 g/dL (31.5-36.5); Mean Corpuscular Volume 78 fL (80-100); Mean Platelet Volume 8.5 fL (9.1-12.4); NEUTROPHILS ABSOLUTE AUTO 5.99 K/mm3 (1.96-9.15); NEUTROPHILS PERCENT AUTO 81 % (41-73); Platelet Count 479 K/mm3 (150-400); RDW Coefficient Variation 17.3 % (11.7-14.2); RDW Standard Deviation 48.9 fL (35.1-46.3); Red Blood Cell Count 2.65 M/mm3 (3.80-5.20); White Blood Cell Count 7.41 K/mm3 (4.00-11.30)
[2023-12-10 02:29] LABS: Albumin/Globulin Ratio 0.5 (0.8-1.8); Bilirubin, Total 0.3 mg/dL (0.1-1.0); Bun/Creatinine Ratio 25.2 (12.0-20.0); Calcium, Blood 8.3 mg/dL (8.5-10.1); Creatinine, Blood 0.63 mg/dL (0.40-1.00); Globulin, Blood 3.9 g/dL (2.2-4.0); Potassium, Blood 3.9 mmol/L (3.5-5.5); Total Protein, Blood 5.9 g/dL (6.4-8.2)
[2023-12-10] MEDS ORDERED: Vancomycin HCL 1,250 MG in NS 250 ML IV ONE (03:00)
[2023-12-10] MEDS ORDERED: Benzonatate 100 MG Cap PO PRN (03:30)
--- NOTE | 2023-12-10 03:30 | NUR ---
PROVIDER NOTIFICATION S/W DR. HOFF REGARDING PT COUGH. PRN TESSALON ORDERED. NOTIFIED MD OF NEED FOR BLOOD CONSENT. MD TO APPEAR AT BEDSIDE SOON POSSIBLE.
[2023-12-10] MEDS ORDERED: NS 500 ML IV SCH (05:00)
[2023-12-10] MEDS ORDERED: MethylPREDNISolone Sod Succ 125 MG Vial IV ONE (05:50)
--- NOTE | 2023-12-10 06:20 | NUR ---
SHIFT SUMMARY PATIENT ADMITTED FROM ED AT APPROX. 0200 FOR ATYPICAL PNEUMONIA WITH HEMOPTYSIS. SHE IS ALERT & ORIENTED x4, ABLE TO APPROPRIATELY COMMUNICATE HER NEEDS, THOUGH SHE IS A BIT HARD OF HEARING. VITALS STABLE. HGB 6.5 THIS AM REQUIRING 1 UNIT OF PRBC, TRANSFUSING AT THIS TIME. LUNG SOUNDS COARSE/RHONCHI, BLOODY SPUTUM, SUCTION SETUP AT BEDSIDE. PT ABLE TO SELF SUCTION. 12L O2 VIA OXIMIZER, FAILED ATTEMPTS TO WEAN O2 DOWN. PUREWICK AND ATTENDS IN PLACE. REDDENED/OPEN AREA ON BUTTOCKS, PICTURES IN CHART, MEPILEX APPLIED. SCATTERED BRUISING NOTED, PATIENT MENTIONS FALLING MULTIPLE TIMES AT HOME. USES A WALKER AT BASELINE.
[2023-12-10] MEDS ORDERED: Cefepime HCl 1,000 MG in NS 100 ML IV SCH (08:00)
[2023-12-10] MEDS ORDERED: Propofol 10mg/ml 20 ml Vial (Procedural) IV ONE (10:19)
[2023-12-10] MEDS ORDERED: LevoFLOXacin 500MG/D5W 100ML 100 ML IV SCH (10:30)
[2023-12-10 10:57] LABS: BASOPHILS ABSOLUTE AUTO 0.02 K/mm3 (0.00-0.23); BASOPHILS PERCENT AUTO 0 % (0-2); EOSINOPHILS PERCENT AUTO 0 % (0-6); Hematocrit 27.6 % (33.0-51.0); Hemoglobin 9.1 g/dL (11.5-16.0); IMMATURE GRAN ABSOLUTE AUTO 0.02 K/mm3 (0.00-0.10); IMMATURE GRAN PERCENT AUTO 0 % (0-1); LYMPHOCYTES ABSOLUTE AUTO 0.52 K/mm3 (0.84-5.20); LYMPHOCYTES PERCENT AUTO 6 % (21-46); MONOCYTES ABSOLUTE AUTO 0.08 K/mm3 (0.16-1.47); MONOCYTES PERCENT AUTO 1 % (4-13); Mean Corpuscular HGB 26.1 pg (26.0-34.0); Mean Corpuscular Volume 79 fL (80-100); Mean Platelet Volume 8.6 fL (9.1-12.4); NEUTROPHILS ABSOLUTE AUTO 8.11 K/mm3 (1.96-9.15); NEUTROPHILS PERCENT AUTO 93 % (41-73); Platelet Count 505 K/mm3 (150-400); RDW Standard Deviation 48.7 fL (35.1-46.3); Red Blood Cell Count 3.49 M/mm3 (3.80-5.20); White Blood Cell Count 8.75 K/mm3 (4.00-11.30)
[2023-12-10] MEDS ORDERED: Vancomycin HCL 750 MG in NS 100 ML IV SCH (17:00)
[2023-12-10 17:22] LABS: Acinetobacter baumannii DNA Not Detected copy/mL (NOT DETECT); Enterobacter cloacae DNA Not Detected copy/mL (NOT DETECT); Escherichia coli DNA Not Detected copy/mL (NOT DETECT); Haemophilus influenzae DNA Not Detected copy/mL (NOT DETECT); Klebsiella aerogenes DNA Not Detected copy/mL (NOT DETECT); Klebsiella oxytoca DNA Not Detected copy/mL (NOT DETECT); Klebsiella pneumoniae DNA Not Detected copy/mL (NOT DETECT); Moraxella catarrhalis DNA Not Detected copy/mL (NOT DETECT); Proteus sp DNA Not Detected copy/mL (NOT DETECT); Pseudomonas aeruginosa DNA Not Detected copy/mL (NOT DETECT); Serratia marcescens DNA Not Detected copy/mL (NOT DETECT); Staphylococcus aureus DNA Not Detected copy/mL (NOT DETECT); Streptococcus agalactiae DNA Not Detected copy/mL (NOT DETECT); Streptococcus pneumoniae DNA Not Detected copy/mL (NOT DETECT); Streptococcus pyogenes DNA Not Detected copy/mL (NOT DETECT)
[2023-12-10 17:23] LABS: Adenovirus DNA Not Detected (NOT DETECT); Chlamydia pneumonia Not Detected (NOT DETECT); Human Coronavirus RNA Not Detected (NOT DETECT); Human Metapneumovirus RNA Not Detected (NOT DETECT); Influenza virus A RNA Not Detected (NOT DETECT); Influenza virus B RNA Not Detected (NOT DETECT); Legionella pneumophila Not Detected (NOT DETECT); Mycoplasma pneumoniae Not Detected (NOT DETECT); Parainfluenza virus RNA Not Detected (NOT DETECT); Respiratory syncytial Vir RNA Not Detected (NOT DETECT); Rhinovirus+Enterovirus RNA Not Detected (NOT DETECT)
--- NOTE | 2023-12-10 18:07 | NUR ---
Shift summary. Pt rested in bed throughout shift. Switched to Airvo this morning, 40L, 52% Fi02. Pt A&O, pleasant and cooperative with care. Peripheral IVs removed and PG placed this afternoon, JENS. NS tko. No acute events this shift. See chart for further details.
[2023-12-10] MEDS ORDERED: Lactobacil 2-S.Thermo-Bifido 1 1 Cap PO SCH (21:00)
[2023-12-11] VITALS (13 sets, daily range): BP systolic 90–128; BP diastolic 60–99
[2023-12-11 04:10] LABS: BASOPHILS ABSOLUTE AUTO 0.01 K/mm3 (0.00-0.23); BASOPHILS PERCENT AUTO 0 % (0-2); EOSINOPHILS PERCENT AUTO 0 % (0-6); Hematocrit 22.3 % (33.0-51.0); Hemoglobin 7.2 g/dL (11.5-16.0); IMMATURE GRAN ABSOLUTE AUTO 0.03 K/mm3 (0.00-0.10); IMMATURE GRAN PERCENT AUTO 0 % (0-1); LYMPHOCYTES ABSOLUTE AUTO 0.74 K/mm3 (0.84-5.20); LYMPHOCYTES PERCENT AUTO 10 % (21-46); MONOCYTES ABSOLUTE AUTO 0.35 K/mm3 (0.16-1.47); MONOCYTES PERCENT AUTO 5 % (4-13); Mean Corpuscular HGB 25.9 pg (26.0-34.0); Mean Corpuscular HGB Conc 32.3 g/dL (31.5-36.5); Mean Corpuscular Volume 80 fL (80-100); Mean Platelet Volume 8.9 fL (9.1-12.4); NEUTROPHILS PERCENT AUTO 85 % (41-73); Platelet Count 444 K/mm3 (150-400); RDW Standard Deviation 50.1 fL (35.1-46.3); Red Blood Cell Count 2.78 M/mm3 (3.80-5.20); White Blood Cell Count 7.23 K/mm3 (4.00-11.30)
[2023-12-11 04:43] LABS: Albumin, Blood 1.9 g/dL (3.4-5.0); Albumin/Globulin Ratio 0.5 (0.8-1.8); Bilirubin, Total 0.4 mg/dL (0.1-1.0); Bun/Creatinine Ratio 34.4 (12.0-20.0); C-REACTIVE PROTEIN, EXT RANGE 17.7 mg/dL (0.000-0.300); Calcium, Blood 8.2 mg/dL (8.5-10.1); Creatinine, Blood 0.73 mg/dL (0.40-1.00); Globulin, Blood 4.1 g/dL (2.2-4.0); Magnesium, Blood 1.8 mg/dL (1.6-2.4); Phosphorus, Blood 3.5 mg/dL (2.5-4.9); Potassium, Blood 4.4 mmol/L (3.5-5.5)
--- NOTE | 2023-12-11 05:14 | NUR ---
SHIFT SUMMARY ASSUMED CARE OF PATIENT AT 1900. PATIENT APPEARED TO REST WELL THROUGHOUT THE NIGHT, TOLERATING AIRVO. AROUND 0500 THIS AM, PATIENT DESATURATED TO 70'S WHILE BEING CLEANED. FIO2 INCREASED FROM 50% TO 60%. PATIENT SPO2 NOW 91%. NOTED: SHE DOES NOT TOLERATE MUCH ACTIVITY/LAYING FLAT. LUNG SOUNDS FINE/COARSE CRACKLES. PERSISTENT COUGH, LESS PRODUCTIVE THAN PREVIOUS SHIFT. NO HEMOPTYSIS NOTED THIS SHIFT, HGB THIS AM 7.2.
[2023-12-11 08:25] LABS: BASOPHILS ABSOLUTE AUTO 0.01 K/mm3 (0.00-0.23); BASOPHILS PERCENT AUTO 0 % (0-2); EOSINOPHILS PERCENT AUTO 0 % (0-6); Hematocrit 22.9 % (33.0-51.0); Hemoglobin 7.5 g/dL (11.5-16.0); IMMATURE GRAN ABSOLUTE AUTO 0.04 K/mm3 (0.00-0.10); IMMATURE GRAN PERCENT AUTO 0 % (0-1); LYMPHOCYTES ABSOLUTE AUTO 0.82 K/mm3 (0.84-5.20); LYMPHOCYTES PERCENT AUTO 9 % (21-46); MONOCYTES ABSOLUTE AUTO 0.39 K/mm3 (0.16-1.47); MONOCYTES PERCENT AUTO 4 % (4-13); Mean Corpuscular HGB 26.2 pg (26.0-34.0); Mean Corpuscular HGB Conc 32.8 g/dL (31.5-36.5); Mean Corpuscular Volume 80 fL (80-100); Mean Platelet Volume 8.4 fL (9.1-12.4); NEUTROPHILS ABSOLUTE AUTO 8.06 K/mm3 (1.96-9.15); NEUTROPHILS PERCENT AUTO 87 % (41-73); Platelet Count 464 K/mm3 (150-400); RDW Coefficient Variation 17.1 % (11.7-14.2); RDW Standard Deviation 49.6 fL (35.1-46.3); Red Blood Cell Count 2.86 M/mm3 (3.80-5.20); White Blood Cell Count 9.32 K/mm3 (4.00-11.30)
[2023-12-11] MEDS ORDERED: LevoFLOXacin 250MG/D5W 50ML 50 ML IV SCH (09:00)
[2023-12-11 17:26] LABS: Vancomycin, Trough 20.8 ug/mL (5.0-10.0)
--- NOTE | 2023-12-11 18:08 | NUR ---
SHIFT SUMMARY PT IS A&OX4, CALLS APPROPRIATELY, AND MAKES HER NEEDS KNOWN. SHE HAS BEEN A Q2 TURN BUT IS VERY FRAGILE WITH ANY MOVEMENT. WITH ACTIVITY, TURNING, COUGHING, THE PT DESATURATES. HER OXYGEN DEMAND CONTINUES TO INCREASE. SHE IS ON THE AIRVO 40L @ 90% CURRENTLY. ICU AND DR. LEE MADE AWARE OF THE INCREASE. DR. LEE STATED THAT THE NEXT STEP WILL BE BIPAP. THE PT IS IN AIRBORNE PRECAUTIONS TO R/O TB. HER WORK OF BREATHING HAS NOT INCREASED. THE PT LOOKS RELAXED IN THE ROOM WHEN SHE IS NOT HAVING A COUGHING FIT. THE PT HAS BEEN SR ON TELE, BP STABLE. SHE HAS A PURWICK DRAINING TO SUCTION. SEE NOTES FOR ANY UPDATES.
--- NOTE | 2023-12-11 19:56 | NUR ---
CONCERN ABOUT DISCHARGE PLANNING THIS RN ANSWERED A PHONE CALL FROM MARCOS VILLALTA. SHE STATED THAT SHE HAS NO RELATIONSHIP WITH THE PT AND THAT SHE IS AWARE OF HIPPA LAWS SO SHE IS NOT LOOKING TO GET INFORMATION BUT INSTEAD WANTED TO SHARE INFORMATION ABOUT THE PT. SHE STATES "JEANETH WAS IN A 20+ YEAR RELATIONSHIP WITH MY GRANDPA'S BROTHER. THEY WERE LIVING IN MY GRANDPA'S GUESTHOUSE WHEN HIS BROTHER LAST YEAR. SHE HAS CONTINUED TO LIVE THERE ALONE AND IS NOT SAFE. MY GRANDPA IS IN HIS 90'S AND HE AND HIS ARE NOT ABLE TO HELP HER. THEY HAD TO CALL AN AMBULANCE TO GET HER UP OFF OF THE FLOOR. SHE IS EITHER GOING TO NEED TO GO SOMEWHERE ELSE OR SHE WILL NEED A 24 HOUR CAREGIVER." SHE IS ASKING THAT CARE MANAGEMENT CONTACT EITHER HERSELF OR HER MOM IF THERE ARE ANY QUESTIONS ABOUT JEANETH'S CURRENT LIVING SITUATION. SHE STATED THAT JEANETH'S ONLY LIVING RELATIVE IS A DAUGHTER WHO IS LOCATED IN [facility]. MARCOS VILLALTA [phone] KAREN MEI [phone]
[2023-12-11] MEDS ORDERED: LORazepam 2 MG/ML 1ML Injection IV ONE (20:25)
[2023-12-11] MEDS ORDERED: Ketorolac Tromethamine 15mg Vial IV PRN (20:25)
--- NOTE | 2023-12-11 20:25 | NUR ---
UPON INITIAL ASSESSEMENT, PATIENT IS VERY UNCOMFORTABLE, COMPLAINING OF SEVERE PAIN IN HER CHEST/LUNGS, TACHYPNEIC WITH RESPIRATIONS 30-40 BREATHS PER MINUTE. PATIENT ASKED RN "CAN YOU GIVE ME SOMETHING TO JUST END IT?" PATIENT EXPRESSING THAT SHE NO LONGER WANTS FULL CARE. RN DISCUSSED OPTIONS WITH PATIENT. PATIENT AGREEABLE TO REVISIT CONVERSATION AFTER PAIN HAS BEEN TREATED. RN NOTIFIED LOCK AND DAM EQUIPMENT REPAIRER. ABG AND PAIN MANAGEMENT ORDERS IN PER NITHIN TEMPLE. INHALATION THERAPIST TO NOTIFY CRITICAL CARE MD FOR POSSIBLE NEED TO TRANSFER TO ICU.
[2023-12-11 20:45] LABS: PCO2 Arterial 30.7 mmHg (35-45); PO2 Arterial 54.9 mmHg (80-100); pH Blood Arterial 7.47 (7.35-7.45)
--- NOTE | 2023-12-11 22:55 | NUR ---
PT ARRIVES TO ICU 5 FROM PCU. REPORT RECEIVED. PT VERY DYSPNEIC. BIPAP IN PLACE 28/04 WITH FIO2 100 PERCENT. REACTIVE TYPE COUGH WITH ANY EXERTION OR TALKING. PT PLEASANT AND COOPERATIVE WITH CARE AND ASSESSMENT. CURRENTLY 94 PERCENT WITH BIPAP. VSS. PT TO ICU 6 AT 2235. SLIDE TRANSFERRED TO BED.
[2023-12-11] MEDS ORDERED: Vancomycin HCL 750 MG in NS 100 ML IV SCH (23:00)
[2023-12-12] VITALS (88 sets, daily range): BP systolic 63–133; BP diastolic 49–94
--- NOTE | 2023-12-12 00:51 | NUR ---
PT HAS REMAINED COMPLIANT WITH BIPAP. HAS MAINTAINED > 90 PERCENT SATURATIONS. VSS. DOES HAVE EXERTIONAL DYSPNEA.
--- NOTE | 2023-12-12 02:55 | NUR ---
ASSUMPTION OF CARE: ASSUMED CARE OF PT AT 0100; REPORT RECIEVED FROM EMRE BAIRD. PT IN BED, DROWSY BY WAKES TO VERBAL STIMULI EASILY AND IS FOLLOWING COMMANDS APPROPRIATELY. PT REMAINS IN BIPAP WITH SETTINGS 16/10, FIO2 90%; SPO2 92< AND PT DENIES SOB AT THIS TIME. LUNG SOUNDS ARE CLEAR T/O WITH DIM BASES. SR ON MONITOR WITH HR 80'S AND SBP 110-120; PT DENIES CHEST PAIN AT THIS TIME. HYPOACTIVE BOWEL TONES NOTED; PT REPORTS RUQ PAIN 4/10, PRN TORADOL PER EMAR. PUREWICK/ATTENDS IN PLACE. PPP X 4, SKIN WARM AND INTACT AND PG TO JENS. NS TKO @ 10 MLS/HR. BED IN LOWEST POSITION AND CALL LIGHT IN REACH.
[2023-12-12 03:39] LABS: ANTI-NUCLEAR AB ANA,IGG ELISA Detected (None Detected)
[2023-12-12 03:45] LABS: BASOPHILS ABSOLUTE AUTO 0.01 K/mm3 (0.00-0.23); BASOPHILS PERCENT AUTO 0 % (0-2); EOSINOPHILS ABSOLUTE AUTO 0.03 K/mm3 (0.00-0.68); EOSINOPHILS PERCENT AUTO 1 % (0-6); Hematocrit 21.5 % (33.0-51.0); IMMATURE GRAN ABSOLUTE AUTO 0.02 K/mm3 (0.00-0.10); IMMATURE GRAN PERCENT AUTO 0 % (0-1); LYMPHOCYTES ABSOLUTE AUTO 0.91 K/mm3 (0.84-5.20); LYMPHOCYTES PERCENT AUTO 14 % (21-46); MONOCYTES ABSOLUTE AUTO 0.28 K/mm3 (0.16-1.47); MONOCYTES PERCENT AUTO 4 % (4-13); Mean Corpuscular HGB 26.5 pg (26.0-34.0); Mean Corpuscular HGB Conc 32.6 g/dL (31.5-36.5); Mean Corpuscular Volume 81 fL (80-100); Mean Platelet Volume 8.5 fL (9.1-12.4); NEUTROPHILS ABSOLUTE AUTO 5.14 K/mm3 (1.96-9.15); NEUTROPHILS PERCENT AUTO 80 % (41-73); Platelet Count 443 K/mm3 (150-400); RDW Coefficient Variation 17.3 % (11.7-14.2); RDW Standard Deviation 51.3 fL (35.1-46.3); Red Blood Cell Count 2.64 M/mm3 (3.80-5.20); White Blood Cell Count 6.39 K/mm3 (4.00-11.30)
[2023-12-12 04:02] LABS: Albumin, Blood 1.8 g/dL (3.4-5.0); Albumin/Globulin Ratio 0.5 (0.8-1.8); Bilirubin, Total 0.3 mg/dL (0.1-1.0); C-REACTIVE PROTEIN, EXT RANGE 8.45 mg/dL (0.000-0.300); Creatinine, Blood 0.57 mg/dL (0.40-1.00); Globulin, Blood 3.8 g/dL (2.2-4.0); Magnesium, Blood 1.6 mg/dL (1.6-2.4); Phosphorus, Blood 2.1 mg/dL (2.5-4.9); Potassium, Blood 3.9 mmol/L (3.5-5.5); Total Protein, Blood 5.6 g/dL (6.4-8.2)
--- NOTE | 2023-12-12 06:08 | NUR ---
SHIFT SUMMARY: MELITA CAMPUZANO CHANGES OVERNIGHT. PT REMAINS ON BIPAP WITH SETTINGS 16/10 AND FIO2 100%. PT TOLERATING REPOSITIONING WELL WITH SMALL FITS OF COUGHING WITH ALL PT CARE. PT'S PAIN RELIEVED WELL WITH PRN TORADOL. PUREWICK REPLACED THIS MORNING; URINE OUTPUT AT 325 MLS. BED LOWERED, CALL LIGHT IN REACH.
[2023-12-12] MEDS ORDERED: Potassium Phosphate Dibasic 20 MM in Dextrose 5% 500 ML IV STA (06:27)
[2023-12-12] MEDS ORDERED: Magnesium Sulf 2 GM/Water 50ML 50 ML IV STA (06:27)
[2023-12-12] MEDS ORDERED: Albumin (Human) 25gm/100ml 100 ML IV ONE (06:30)
[2023-12-12 06:52] LABS: Base Excess Venous -1.3 mmol/L; Bicarbonate Venous 23.4 mmol/L (24.0-30.0); PCO2 Venous 35.7 mmHg (38-42); pH Blood Venous 7.42 (7.34-7.37)
[2023-12-12] MEDS ORDERED: Sodium Phosphate 20 MM in Dextrose 5% 500 ML IV STA (07:14)
[2023-12-12 08:52] LABS: BASOPHILS ABSOLUTE AUTO 0.01 K/mm3 (0.00-0.23); BASOPHILS PERCENT AUTO 0 % (0-2); EOSINOPHILS ABSOLUTE AUTO 0.05 K/mm3 (0.00-0.68); EOSINOPHILS PERCENT AUTO 1 % (0-6); Hematocrit 18.3 % (33.0-51.0); Hemoglobin 6.1 g/dL (11.5-16.0); IMMATURE GRAN ABSOLUTE AUTO 0.03 K/mm3 (0.00-0.10); IMMATURE GRAN PERCENT AUTO 1 % (0-1); LYMPHOCYTES ABSOLUTE AUTO 0.76 K/mm3 (0.84-5.20); LYMPHOCYTES PERCENT AUTO 15 % (21-46); MONOCYTES ABSOLUTE AUTO 0.26 K/mm3 (0.16-1.47); MONOCYTES PERCENT AUTO 5 % (4-13); Mean Corpuscular HGB 26.5 pg (26.0-34.0); Mean Corpuscular HGB Conc 33.3 g/dL (31.5-36.5); Mean Corpuscular Volume 80 fL (80-100); Mean Platelet Volume 8.3 fL (9.1-12.4); NEUTROPHILS PERCENT AUTO 78 % (41-73); Platelet Count 412 K/mm3 (150-400); RDW Coefficient Variation 17.7 % (11.7-14.2); RDW Standard Deviation 51.2 fL (35.1-46.3); White Blood Cell Count 5.11 K/mm3 (4.00-11.30)
[2023-12-12] MEDS ORDERED: MethylPREDNISolone Sod Succ 500 MG in Dextrose 5% 50 ML IV SCH (09:30)
--- NOTE | 2023-12-12 09:30 | NUR ---
INTUBATION 929- 28/06, 100% FIO2. SPO2 88%. DR LEE IN ROOM. 0936- 50 MG PROPOFOL GIVEN. 937- INTUBATED WITH 8.0 CM ETT, 23 CM AT TEETH. SPO2 80%. ETCO2 26. BREATH SOUNDS AUSCULTATED BILATERALLY. 0944 - 50 MCG FENTANYL GIVEN. 947- CONNECTED TO VENTILATOR. ACVC 28/315/15/100%. SPO2 79%. ETCO2 21.
[2023-12-12] MEDS ORDERED: FentaNYL Citrate 50 MCG/ML 2 ML Injection ONE (09:42)
[2023-12-12] MEDS ORDERED: propofoL 100 ML IV ONE (09:42)
[2023-12-12] MEDS ORDERED: MethylPREDNISolone Sod Succ 125 MG Vial IV SCH (10:00)
[2023-12-12] MEDS ORDERED: FentaNYL Citrate 50 MCG/ML 2 ML Injection IV PRN (10:00)
[2023-12-12] MEDS ORDERED: LORazepam 2 MG/ML 1ML Injection IV PRN (10:00)
[2023-12-12] MEDS ORDERED: NS 1,000 ML IV SCH (10:05)
[2023-12-12] MEDS ORDERED: Cetylpyridinium Chloride 1 EA MISC MT SCH (10:05)
[2023-12-12] MEDS ORDERED: propofoL 100 ML IV SCH (10:05)
[2023-12-12 10:37] LABS: GBM, IGG MULTIPLEX BEAD ASSAY 0 AU/mL (0-19); MYELOPEROXIDASE (MPO) AB,IGG 0 AU/mL (0-19); SERINE PROTEINASE 3 PR3 AB,IGG 838 AU/mL (0-19)
[2023-12-12] MEDS ORDERED: NS 1,000 ML IV ONE (11:00)
[2023-12-12] MEDS ORDERED: Thiamine HCl 100 MG Tab PT SCH (11:05)
[2023-12-12] MEDS ORDERED: Multivitamins-Minerals Liquid 15 ML Oral Syringe PT SCH (11:05)
[2023-12-12] MEDS ORDERED: Magnesium Hydroxide Conc 10 ML UDC PT PRN (11:05)
[2023-12-12] MEDS ORDERED: Bisacodyl 10 MG Supp PR PRN (11:05)
[2023-12-12] MEDS ORDERED: Docusate Sodium 100 MG UDC PT PRN (11:05)
[2023-12-12 11:11] LABS: Source, Urine Foley catheter
[2023-12-12] MEDS ORDERED: NS 250 ML IV PRN (11:15)
[2023-12-12] MEDS ORDERED: Cisatracurium Besylate 100 MG in NS 50 ML IV PRN (11:30)
[2023-12-12] MEDS ORDERED: Hydrogen Peroxide 1.5 % Solution MT SCH (12:00)
[2023-12-12 12:03] LABS: International Normalized Ratio 1.11; Prothrombin Time Results 11.8 Sec (9.7-11.5)
[2023-12-12 12:11] LABS: Appearance, Urine Clear (Clear); Bilirubin, Urine Neg (Neg); Blood, Urine 5+ (Neg); Glucose Qualitative, Urine Neg (Neg); Ketones, Urine Neg (Neg); Leukocyte Esterase, Urine Neg (Neg); Nitrite, Urine Neg (Neg); Protein, Urine 2+ (Neg); Specific Gravity, Urine 1.005 (1.003-1.022); Urobilinogen, Urine NORM (Normal)
[2023-12-12 13:07] LABS: Color, Urine Yellow (P-Yellow)
[2023-12-12 13:09] LABS: White Blood Cells, Urine 0-2 /hpf (0-5)
[2023-12-12 13:10] LABS: Bacteria Mod /hpf; Squamous Epithelial Cells Rare /hpf (Few); Transitional Epithelial Cells Rare /hpf (0-Rare)
--- NOTE | 2023-12-12 13:18 | NUR ---
PT BELONGINGS SIX RINGS AND 2 BRACELETS WERE REMOVED POST-INTUBATION. PLACED IN A SPECIMEN CUP AND LOCKED IN ROOM.
--- NOTE | 2023-12-12 13:20 | NUR ---
Martin of Care/ Intubation: Care assumed at 0700hr. Patient sleeping but easily roused to verbal stimuli, oriented x4. On BiPAP 16/10/100%, spO2 90-94%. Patient frequently coughing moderate amount of thin blood tinged sputum, spO2 then decreases to 80-85%, taking several minutes to recover. Respiratory rate 35-40. All other VSS. Power-glide to JENS patent and intact. Purwick urinary device in place, patent and intact. Dr. Martinez and Dr. Armenta to bedside early this morning, discussed patient's condition and decision made to intubate patient. Patient agreeable to plan for intubation. Dr. Armenta then intubated patient at 0940hr. Following intubation, spO2 decreased into the 60's despite PEEP of 15 and 100% FiO2. Sedation drastically increased (per Dr. Armenta). Propofol gtt titrated up to 60mcg/kg/min, and x2 doses of prn fentanyl and Ativan given. Patient became effectively sedated but spO2 remained in the 60's. Frequently coughing up large amount of thick bloody sputum. Received or for Nimbex gtt per Dr. Armenta. Nimbex gtt started at 2mcg and titrated up to 3mcg, patient now effectively paralyzed with TOF 2/4 and riding back-up respiratory rate of ventilator. SpO2 slowly improved and now holding at 89-92%. BIS score 40's. PICC line placed shortly after intubation by Terry BAIRD, infusing without difficulty. Levophed gtt infusing at 2mcg/min as patient's BP decreased to systolic's 60's-70's with increased sedation, 1L NS bolus also given. Systolic BP's now in low 100's with MAP's in the 80's. Trejo cath placed per critical I/O's, patent and intact. Will continue to monitor.
--- NOTE | 2023-12-12 14:45 | NUR ---
Proning: Instructed to prone patient per Dr. Armenta. Intent to be able to decrease FiO2 and PEEP. Patient proned at 1425hr without difficulty. SpO2 now decreased to 60's-70's, Dr. Armenta aware. All other VS remain stable. Will continue to monitor for approx 30-60min and evaluate need to turn patient back to supine.
[2023-12-12 15:45] LABS: PCO2 Arterial 47 mmHg (35-45); pH Blood Arterial 7.25 (7.35-7.45)
[2023-12-12 15:46] LABS: PO2 Arterial 49 mmHg (80-100)
[2023-12-12] MEDS ORDERED: Tranexamic Acid 1000 MG/10 ML 10ML Vial (SDV) INH SCH ×2 (16:05)
[2023-12-12 17:08] LABS: HIV 1,2 COMBO ANTIGEN/ANTIBODY Negative (Negative)
[2023-12-12 17:24] LABS: BASOPHILS ABSOLUTE AUTO 0.01 K/mm3 (0.00-0.23); BASOPHILS PERCENT AUTO 0 % (0-2); EOSINOPHILS PERCENT AUTO 0 % (0-6); Hematocrit 25.9 % (33.0-51.0); Hemoglobin 8.6 g/dL (11.5-16.0); IMMATURE GRAN ABSOLUTE AUTO 0.05 K/mm3 (0.00-0.10); IMMATURE GRAN PERCENT AUTO 1 % (0-1); LYMPHOCYTES ABSOLUTE AUTO 0.57 K/mm3 (0.84-5.20); LYMPHOCYTES PERCENT AUTO 7 % (21-46); MONOCYTES ABSOLUTE AUTO 0.16 K/mm3 (0.16-1.47); MONOCYTES PERCENT AUTO 2 % (4-13); Mean Corpuscular HGB 27.7 pg (26.0-34.0); Mean Corpuscular HGB Conc 33.2 g/dL (31.5-36.5); Mean Corpuscular Volume 83 fL (80-100); Mean Platelet Volume 8.5 fL (9.1-12.4); NEUTROPHILS PERCENT AUTO 90 % (41-73); Platelet Count 400 K/mm3 (150-400); RDW Standard Deviation 48.3 fL (35.1-46.3); Red Blood Cell Count 3.11 M/mm3 (3.80-5.20); White Blood Cell Count 7.79 K/mm3 (4.00-11.30)
[2023-12-12 17:46] LABS: Albumin, Blood 2.3 g/dL (3.4-5.0); Anion Gap 12 mmol/L (3-11); Blood Urea Nitrogen 17 mg/dL (8-24); Bun/Creatinine Ratio 27.8 (12.0-20.0); CO2, Blood 21 mmol/L (21-32); Calcium, Blood 7.4 mg/dL (8.5-10.1); Chloride, Blood 108 mmol/L (98-108); Creatinine, Blood 0.61 mg/dL (0.40-1.00); Glomerular Filtration Rate 96 (60-); Glucose, Blood 183 mg/dL (70-99); Phosphorus, Blood 4.3 mg/dL (2.5-4.9); Potassium, Blood 3.7 mmol/L (3.5-5.5); Sodium, Blood 137 mmol/L (136-145)
--- NOTE | 2023-12-12 18:13 | NUR ---
Shift Summary: See previous notes r/t intubation and proning. Patient SpO2 remains low after turning patient prone, but has slowly increased from 70% to 86% over 3hr. Spoke with Dr. Armenta, plan to keep patient prone as long as SpO2 remains above 80%. Prone for total of 16hr (1400 to 0600). BP remains stable, levophed gtt started at 2mcg then turned off at approx 1200hr. Nimbex gtt at 3mcg, TOF 4/4 but patient appear adequately paralyzed. No cough and riding back up rate on ventilator. BIS score 35-40's, propofol gtt at 50mcg. PICC line and PG remain patent and intact. Trejo cath patent and intact draining clear yellow urine, 600ml output this shift. Will continue to monitor until report to NOC shift RN.
--- NOTE | 2023-12-12 18:43 | NUR ---
Dr. Armenta/ECMO: Received call from Dr. Armenta at this time. Dr. Armenta has been in consult with Dr. Poole at [facility] (ECMO team). Dr. Poole placed call to patient's daughter Zay. Zay declined placing patient on ECMO, stating patient would not want such aggressive measures. No further evaluation for ECMO at this time.
--- NOTE | 2023-12-12 21:14 | NUR ---
ASSUMED CARE OF PT AT 1900 PT PRONED ON HOSPITAL BED. HEAD TURNED TOWARDS R. SHOULDER. PT TRAIN OF FOUR 0/4. NIMBEX RUNNING AT MCG/KG/MIN, PROPOFOL AT 50MCG/KG/HR, NS AT 100ML/HR, NS TKO AT 10ML/HR, AND LEVOPHED ON STANDBY AT BEDSIDE. PT LUNGS COARSE T/O. VENT SETTINGS AC/VC: 28/310/15/100% FIO2. 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 BP STABLE, MAP >65. BIS SCORE 38. TEMP PROBE LAZO PATENT AND DRAINING CLEAR YELLOW URINE TO GRAVITY. PT HAS MEPILEX PLACED TO BONY PROMINENCES. SCATTERED BRUISES OBSERVED TO BLES. PT COOL TO TOUCH. OG PATENT AND CLAMPED.
[2023-12-13] VITALS (94 sets, daily range): BP systolic 95–154; BP diastolic 66–109
[2023-12-13 05:03] LABS: BASOPHILS ABSOLUTE AUTO 0.01 K/mm3 (0.00-0.23); BASOPHILS PERCENT AUTO 0 % (0-2); EOSINOPHILS PERCENT AUTO 0 % (0-6); Hematocrit 24.5 % (33.0-51.0); Hemoglobin 8.3 g/dL (11.5-16.0); IMMATURE GRAN ABSOLUTE AUTO 0.06 K/mm3 (0.00-0.10); IMMATURE GRAN PERCENT AUTO 1 % (0-1); LYMPHOCYTES ABSOLUTE AUTO 0.68 K/mm3 (0.84-5.20); LYMPHOCYTES PERCENT AUTO 10 % (21-46); MONOCYTES ABSOLUTE AUTO 0.18 K/mm3 (0.16-1.47); MONOCYTES PERCENT AUTO 3 % (4-13); Mean Corpuscular HGB 27.5 pg (26.0-34.0); Mean Corpuscular HGB Conc 33.9 g/dL (31.5-36.5); Mean Corpuscular Volume 81 fL (80-100); Mean Platelet Volume 8.6 fL (9.1-12.4); NEUTROPHILS ABSOLUTE AUTO 5.83 K/mm3 (1.96-9.15); NEUTROPHILS PERCENT AUTO 86 % (41-73); Platelet Count 395 K/mm3 (150-400); RDW Coefficient Variation 15.4 % (11.7-14.2); RDW Standard Deviation 45.1 fL (35.1-46.3); Red Blood Cell Count 3.02 M/mm3 (3.80-5.20); White Blood Cell Count 6.76 K/mm3 (4.00-11.30)
--- NOTE | 2023-12-13 05:11 | NUR ---
END OF SHIFT SUMMARY PT REMAINED IN PRONED POSITION T/O SHIFT, PLANS TO REPOSITION TO SUPINE BEFORE END OF SHIFT. PT TOLERATED HEAD TURNS T/O NIGHT WELL. MOST RECENT TRAIN OF FOUR SCORE WAS 3/4. NIMBEX RUNNING AT 1.5MCG/KG/MIN, PROPOFOL 25MCG/KG/MIN, NS 100ML/HR, AND NS TKO LINE. VENT SETTING UNCHANGED FROM PREVIOUS NOTE. CRACKLES T/O LUNG RODRIGUEZ. PT HR 80-90S, NSR. BP STABLE. TEMP PROBE LAZO PATEND AND DRAINING TO GRAVITY. PT DAUGHTER CALLED AND WAS UPDATED ON PT CONDITION. WILL REPORT TO ONCOMING SHIFT RN WHEN AVAILABLE. CARE CONTINUES
[2023-12-13 05:48] LABS: Albumin, Blood 2.3 g/dL (3.4-5.0); Albumin/Globulin Ratio 0.6 (0.8-1.8); Bilirubin, Total 0.6 mg/dL (0.1-1.0); Bun/Creatinine Ratio 34.8 (12.0-20.0); C-REACTIVE PROTEIN, EXT RANGE 15.2 mg/dL (0.000-0.300); Calcium, Blood 8.2 mg/dL (8.5-10.1); Creatinine, Blood 0.49 mg/dL (0.40-1.00); Globulin, Blood 3.8 g/dL (2.2-4.0); Magnesium, Blood 2.2 mg/dL (1.6-2.4); Phosphorus, Blood 3.7 mg/dL (2.5-4.9); Potassium, Blood 3.8 mmol/L (3.5-5.5); Total Protein, Blood 6.1 g/dL (6.4-8.2)
[2023-12-13] MEDS ORDERED: Pantoprazole Sodium 40 MG Injection IV SCH (06:00)
[2023-12-13] MEDS ORDERED: Protein Supplement 30 ML UD PT SCH (09:00)
[2023-12-13 11:13] LABS: Vancomycin, Trough 16.7 ug/mL (5.0-10.0)
[2023-12-13 12:48] LABS: ANA PATTERN Speckled; ANTINUCLEAR AB (ANA),HEP-2,IGG Detected (<1:80)
[2023-12-13] MEDS ORDERED: Furosemide 10 MG / ML 2ML Vial IV SCH (13:00)
[2023-12-13] MEDS ORDERED: Potassium Chloride 20 MEQ/15 ML UDC PT ONE (13:00)
--- NOTE | 2023-12-13 16:47 | NUR ---
SHIFT SUMMARY NO ACUTE CHANGES THIS SHIFT. PT HAS MADE GREAT IMPROVEMENTS IN OXYGENATION. PT REMAINS INTUBATED, SEDATED, AND PARALYZED. VENT SETTINGS TITRATED TO AC 28, TV 315, PEEP 12, AND FIO2 DOWN TO 60%. PT SEDATED WITH PROPOFOL AT 45 MCG/KG/MIN AND PARALYZED WITH NIMBEX AT 1.5 MCG/KG/MIN. BIS READINGS 40-70 THIS SHIFT. TOF 4/4 THROUGHOUT THE SHIFT, BUT PT REMAINS VENT COMPLIANT WITHOUT SPONTANEOUS COUGHING. PT CONTINUES TO HAVE PINK/RED SECRETIONS WITH ETT SUCTION, BUT ARE DECREASING IN FREQUENCY THROUGHOUT THE SHIFT. PICC TO AZEEM AND PG TO JENS C/D/I. NS INFUSING TKO. OGT REMAINS IN PLACE AND TF STARTED THIS SHIFT AND ADVANCED TO 35 ML/HR GOAL RATE. LAZO TEMP PROBE REMAINS IN PLACE WITH LARGE AMOUNT OF CLEAR YELLOW URINE OUTPUT NOTED AFTER LASIX. 24 HR URINE COLLECTION STARTED THIS SHIFT AT 14OO. VITAL SIGNS HAVE REMAINED STABLE. NO FAMILY AT BEDSIDE. PT SISTER UPDATED VIA PHONE BY THIS RN AND DR POLO THIS SHIFT. WILL CONTINUE TO MONITOR AND REPORT OFF TO ONCOMING RN.
--- NOTE | 2023-12-13 20:58 | NUR ---
ASSUMED CARE @1900 WITH TAWNYA BAIRD PT IS INTUBATED, SEDATED AND PARALYZED. EXTREMITIES ARE FLACID, BIS READING 40'S BUT WILL PERIODICALLY SPIKE TO 70'S, TOF 4/4, NIMBEX @ 1.5 MCG/KG/MIN, PROPFOL @ 60. LUNGS SOUND CLEAR BUT HAVE OCCATIONALY RHONCHI, THIN BLOOD TINGED SPUTUM FROM ETT SUCTION, VENT SETTINGS ARE AC/VC 28/315/12/65%, SPO2 100%. HR 90'S, NSR, BP MILDLY ELEVATED 136/80. BOWEL TONES PRESENT IN ALL RODRIGUEZ, OGT SECURE TO ETT WITH PINK TAPE SET TO TUBE FEED AT RATE OF 35 WITH 30ML FLUSH Q4HR. TEMP LAZO PATENT, SECURE, DRAINING TO GRAVITY, BAG IS IN BASIN OF ICE FOR 24HR URINE COLLECTION. TRACE DEPENDET EDEMA IN EXTREMITIES, ELEVATED WITH PILLOWS, SMALL CLOSED REDENED WOUND ON SACRUM THAT IS COVERED WITH MEPILEX.
[2023-12-14] VITALS (81 sets, daily range): BP systolic 88–177; BP diastolic 61–103
[2023-12-14 04:45] LABS: BASOPHILS PERCENT AUTO 0 % (0-2); EOSINOPHILS PERCENT AUTO 0 % (0-6); Hematocrit 19.9 % (33.0-51.0); Hemoglobin 6.7 g/dL (11.5-16.0); IMMATURE GRAN ABSOLUTE AUTO 0.04 K/mm3 (0.00-0.10); IMMATURE GRAN PERCENT AUTO 0 % (0-1); LYMPHOCYTES ABSOLUTE AUTO 0.55 K/mm3 (0.84-5.20); LYMPHOCYTES PERCENT AUTO 6 % (21-46); MONOCYTES ABSOLUTE AUTO 0.36 K/mm3 (0.16-1.47); MONOCYTES PERCENT AUTO 4 % (4-13); Mean Corpuscular HGB 27.1 pg (26.0-34.0); Mean Corpuscular HGB Conc 33.7 g/dL (31.5-36.5); Mean Corpuscular Volume 81 fL (80-100); Mean Platelet Volume 8.8 fL (9.1-12.4); NEUTROPHILS ABSOLUTE AUTO 8.24 K/mm3 (1.96-9.15); NEUTROPHILS PERCENT AUTO 90 % (41-73); Platelet Count 340 K/mm3 (150-400); RDW Coefficient Variation 16.2 % (11.7-14.2); RDW Standard Deviation 46.7 fL (35.1-46.3); Red Blood Cell Count 2.47 M/mm3 (3.80-5.20); White Blood Cell Count 9.19 K/mm3 (4.00-11.30)
[2023-12-14 05:10] LABS: Albumin/Globulin Ratio 0.6 (0.8-1.8); Bilirubin, Total 0.5 mg/dL (0.1-1.0); Bun/Creatinine Ratio 38.1 (12.0-20.0); Calcium, Blood 8.2 mg/dL (8.5-10.1); Creatinine, Blood 0.79 mg/dL (0.40-1.00); Globulin, Blood 3.5 g/dL (2.2-4.0); Potassium, Blood 3.5 mmol/L (3.5-5.5); Total Protein, Blood 5.5 g/dL (6.4-8.2)
--- NOTE | 2023-12-14 05:53 | NUR ---
SHIFT SUMMARY NO ACUTE CHANGES THIS SHIFT. PT REMAINS INTUBATED/SEDATED/PARALYZED, PROPOFOL @ 60MCG/KG/HR, NIMBEX @ 1.5MCG/KG/MIN, PT COMPLIANT WITH VENT WHILE RESTING BUT WILL COUGH DURING TURNS, RASS -2, BIS 30-70'S, TOF 4/4. LUNGS REMAIN CLEAR WITH OCCASIONAL RHONCHI, SCANT THIN BLOOD TINGIED SPUTUM OUT OF ETT, VENT SETTINGS ARE NOW 28/315/12/60%, SPO2 @ 94%. HR 90'S, NSR, BP BECAME SOFT AROUND MIDNIGHT BUT MAP >65, BP MOSTLY MILDLY ELEVATED 130'S/80'S THIS SHIFT. NO BM THIS SHIFT, OGT REMAINS SECURE TO ETT WITH TAPE CONNECTED TO TF @ 35MLS WITH 30MLS FLUSH Q4H. TEMP LAZO PATENT/SECURE/DRAINING TO GRAVITY, 24HR URINE ON ICE. MEPILEX DRESSING ON SACRUM FOR SMALL CLOSED WOUND. ORDERS TO TRANSFUSE 1 UNIT RBC'S PER HOSPITALIST.
[2023-12-14] MEDS ORDERED: Potassium Chloride 20 MEQ/15 ML UDC PT ONE ×2 (07:25→18:55)
[2023-12-14] MEDS ORDERED: Furosemide 10 MG / ML 2ML Vial IV SCH (13:00)
--- NOTE | 2023-12-14 14:48 | NUR ---
ETT SECRETIONS PATIENT WAS COUGHING ON VENT AND DESATTED TO 86%. ETT SUCTIONED AND MODERATE AMOUNT OF BLOODY SECRETIONS FROM ETT WERE PRESENT. SPO2 IMPROVED TO MID 90'S. CONTINUED EPISODES OF COUGHING AND TACHYPNEA. SEDATION INCREASED PER FLOWSHEET AND MEDICATED WITH 25 MCG FENTANYL IV.
[2023-12-14 15:13] LABS: Microalbumin, Urine Quant. 38.6 mg/L (0.000-20.000)
[2023-12-14 16:59] LABS: Hematocrit 25.4 % (33.0-51.0); Hemoglobin 8.7 g/dL (11.5-16.0)
--- NOTE | 2023-12-14 17:00 | NUR ---
SHIFT SUMMARY PATIENT REMAINS INTUBATED AND SEDATED. PROPOFOL @ 45 MCG/KG/MIN, NIMBEX OFF. FENTANYL 25 MCG IV X2 GIVEN FOR SEDATION ADJUNCT. PATIENT HAD INCREASED COUGHING THIS AFTERNOON WITH INCREASED BLOODY ETT SECRETIONS. PATIENT DOES NOT OPEN EYES OR FOLLOW COMMANDS, BUT HAS GAG, COUGH, AND SWALLOW. VENT SETTINGS AC/VC 28/325/10/45%. SPO2 LOW TO MID 90'S, ETCO2 LOW TO MID 20'S. SR W/ RATE 60'S-80'S. BP STABLE WITH MAPS GREATER THAN 65. TF REMAINS AT GR 35ML/HR WITH 30ML Q4H WATER FLUSHES. NO BM THIS SHIFT. LAZO PATENT AND DRAINING TO GRAVITY. 24H URINE COLLECTED. 1 UNIT PRBC GIVEN AND H&H RECHECK PENDING. NO OTHER CHANGES THIS SHIFT.
[2023-12-14 17:18] LABS: Albumin, Blood 2.2 g/dL (3.4-5.0); Anion Gap 11 mmol/L (3-11); Blood Urea Nitrogen 37 mg/dL (8-24); Bun/Creatinine Ratio 47.3 (12.0-20.0); CO2, Blood 24 mmol/L (21-32); Calcium, Blood 7.9 mg/dL (8.5-10.1); Chloride, Blood 109 mmol/L (98-108); Creatinine, Blood 0.78 mg/dL (0.40-1.00); Glomerular Filtration Rate 81 (60-); Glucose, Blood 157 mg/dL (70-99); Phosphorus, Blood 1.8 mg/dL (2.5-4.9); Potassium, Blood 3.6 mmol/L (3.5-5.5); Sodium, Blood 140 mmol/L (136-145)
[2023-12-14] MEDS ORDERED: Potassium Phosphate Dibasic 30 MM in Dextrose 5% 500 ML IV ONE (19:40)
--- NOTE | 2023-12-14 22:18 | NUR ---
ASSUMPTION OF CARE: RECEIVED REPORT FROM SAMUEL Blevins RN AT 1900. PT INTUBATED AND SEDATED ON 45 MCG/KG/MIN OF PROPOFOL. PT GRIMACES WITH ORAL CARE BUT IS NOT OPENING EYES TO VERBAL STIMULI OR WITHDRAWING TO PAIN. DOES NOT FOLLOW COMMANDS. ATTEMPTED TO TURN PROPOFOL DOWN FOR ASSESSMENT, PT COUGHING REPEATEDLY AND FIGHTING VENTILATOR. VENT SETTINGS AC/PC 24/8.0/45% FIO2. SPO2 >90%. LUNGS COARSE T/O. PINK/REDDISH SECRETIONS SUCTIONED FROM ET TUBE, MINIMAL AMOUNT. GARMENT PATTERNMAKER IN PLACE, SR WITH HR 70'S. SBP STABLE. LAZO IN PLACE, DRAINING TO GRAVITY. PICC TO AZEEM, PATENT AND INFUSING. POWERGLIDE TO JENS, PATENT AND INFUSING. TUBE FEED AT GOAL THROUGH OGT. BT PRESENT BUT HYPOACTIVE IN ALL QUADRANTS. NO BM YET. BED LOW AND LOCKED.
[2023-12-15] VITALS (94 sets, daily range): BP systolic 109–171; BP diastolic 64–100
[2023-12-15 04:27] LABS: BASOPHILS ABSOLUTE AUTO 0.01 K/mm3 (0.00-0.23); BASOPHILS PERCENT AUTO 0 % (0-2); EOSINOPHILS PERCENT AUTO 0 % (0-6); Hematocrit 24.2 % (33.0-51.0); Hemoglobin 8.3 g/dL (11.5-16.0); IMMATURE GRAN ABSOLUTE AUTO 0.17 K/mm3 (0.00-0.10); IMMATURE GRAN PERCENT AUTO 1 % (0-1); LYMPHOCYTES PERCENT AUTO 4 % (21-46); MONOCYTES ABSOLUTE AUTO 0.65 K/mm3 (0.16-1.47); MONOCYTES PERCENT AUTO 4 % (4-13); Mean Corpuscular HGB 26.9 pg (26.0-34.0); Mean Corpuscular HGB Conc 34.3 g/dL (31.5-36.5); Mean Corpuscular Volume 79 fL (80-100); NEUTROPHILS ABSOLUTE AUTO 17.31 K/mm3 (1.96-9.15); NEUTROPHILS PERCENT AUTO 92 % (41-73); NRBC ABSOLUTE 0.03 K/mm3 (0.00-0.02); NRBC Auto 0.2 /100 WBC (0.0-0.2); Platelet Count 365 K/mm3 (150-400); RDW Coefficient Variation 16.7 % (11.7-14.2); RDW Standard Deviation 46.9 fL (35.1-46.3); Red Blood Cell Count 3.08 M/mm3 (3.80-5.20); White Blood Cell Count 18.84 K/mm3 (4.00-11.30)
[2023-12-15 04:44] LABS: Albumin, Blood 2.1 g/dL (3.4-5.0); Anion Gap 13 mmol/L (3-11); Blood Urea Nitrogen 49 mg/dL (8-24); CO2, Blood 24 mmol/L (21-32); Calcium, Blood 7.7 mg/dL (8.5-10.1); Chloride, Blood 106 mmol/L (98-108); Creatinine, Blood 0.82 mg/dL (0.40-1.00); Glomerular Filtration Rate 76 (60-); Glucose, Blood 160 mg/dL (70-99); Magnesium, Blood 1.6 mg/dL (1.6-2.4); Phosphorus, Blood 3.6 mg/dL (2.5-4.9); Potassium, Blood 2.9 mmol/L (3.5-5.5); Sodium, Blood 140 mmol/L (136-145)
[2023-12-15] MEDS ORDERED: Mag Sulfate 1 GM/D5% 100ML 100 ML IV ONE (04:50)
[2023-12-15] MEDS ORDERED: Potassium Chloride 40 MEQ in NS 250 ML IV ONE (04:50)
--- NOTE | 2023-12-15 06:55 | NUR ---
SHIFT SUMMARY: PT REMAINS INTUBATED AND SEDATED. PROPOFOL AT 35 MCG/KG/MIN. VENT SETTINGS AC/PC 24/8.0/45% FIO2. SPO2 >90%. LUNGS COARSE T/O. PT NOT OPENING EYES OR FOLLOWING COMMANDS. DOES NOT WITHDRAW TO PAINFUL STIMULI. PT DOES HAVE COUGH, GAG AND SWALLOW INTACT. FURROWS BROWS TO ORAL CARE AND SUCTIONING. MEDICATED WITH FENTANYL PER EMAR FOR VENT COMPLIANCE AND COMFORT. PT HAS FREQUENT COUGHING EPISODES AND SETS OFF VENTILATOR. SUCTIONING LIGHT PINK SECRETIONS FROM ET TUBE. 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 SBP 100'S-130'S. TUBE FEED AT GOAL THROUGH OGT. TEMP LAZO PATENT AND DRAINING TO GRAVITY. NO BM THIS SHIFT. PT DAUGHTER CALLED THIS MORNING FOR UPDATE ON PT CONDITION. PICC TO AZEEM, PATENT AND INFUSING. POWERGLIDE TO JENS, PATENT AND INFUSING. BED LOW AND LOCKED.
[2023-12-15] MEDS ORDERED: MethylPREDNISolone Sod Succ 40 MG VIAL IV SCH (09:00)
--- NOTE | 2023-12-15 09:09 | NUR ---
Discontinue isolation for rule out TB. verbalized by Dr Perez to discontinue isolation.
[2023-12-15] MEDS ORDERED: Lidocaine 2% 5 ML SDV EPI ONE (10:35)
[2023-12-15] MEDS ORDERED: Lidocaine 2% 5 ML SDV XX ONE (10:45)
--- NOTE | 2023-12-15 11:32 | NUR ---
ASSUMED CARE ASSUMED CARE OF THIS PATIENT ALONG WITH PATIENTS PRIMARY RN JEFF, SHIFT REPORT RECEIVED FROM MAINOR BAIRD. PATIENT INTUBATED AND SEDATED TO START SHIFT, ON AIRBORN PRECAUTIONS. VENT SETTINGS AC/PC 24/8.0/45% WITH SATS IN THE 90'S. PROPOFOL INFUSING AT 35.5. BP'S STABLE WITH MAP>65, HR IN THE 70'S. PATIENT NOT REPONSIVE TO VERBAL/PAINFUL STIMULI, NOC RN REPORTS BLOODY SECRETIONS WITH ET SUCTION. AIRBORN PRECAUTIONS DISCONTINUED BY MD SHORTLY AFTER START OF SHIFT. LUNG SOUNDS COARSE THROUGHOUT. LAZO CATH PATENT AND DRAINING TO GRAVITY.
[2023-12-15 13:58] LABS: ANCA IFA PATTERN c-ANCA (None Detected)
--- NOTE | 2023-12-15 16:13 | NUR ---
Pt is being attended to by Dr. Perez. He has been commumicating with pt's daughter Zay lópez. Discussed pt's case with bedside RN. At this time, palliative care will remain available to assist as needed.
[2023-12-15 16:50] LABS: Vancomycin, Trough 29.2 ug/mL (5.0-10.0)
--- NOTE | 2023-12-15 18:09 | NUR ---
SHIFT SUMMARY PATIENT CONTINUES ON INTUBATION/SEDATION. PROPOFOL INFUSING AT 25, VENT SETTINGS AC/PC 24/8.0/45% O2SATS IN UPPER 90% THROUGHOUT SHIFT. LUNG SOUNDS ARE COARSE, SMALL AMOUNTS OF THICK RED SECRETIONS SUCTIONED VIA ET. PATIENT HAS HAD PERIODIC COUGHING EPISODES, RT IN THIS AM AND ADMINISTERED A LIDOCAINE TX WHICH WAS BRIEFLY EFFECTIVE IN REDUCING COUGHING EPISODES. TEMP SLIGHTLY ELEVATED MOST OF SHIFT IN THE 99F RANGE VIA TEMP LAZO. BP HAS BEEN STABLE WITH SBP IN HTE 120/130 RANGE. HR HAS BEEN WNL. PATIETN WAS UNRESPONSIVE TO PAINFUL STIMULI OR VOICE THIS AM, HAS BEEN MORE ALERT FOLLOWING TITRATION OF PROPOFOL BY RN BY OPENING EYES TO VERBAL STIMULI, RASS -2. VANCO HELD THIS SHIFT DUE TO CH VANCO TROUGH. LAZO CATH PATENT AND DRAINING TO GRAVITY. DOCUSATE ADMINISTERED PRN, NO BM OF THIS TIME. PATIENT CURRENTLY RESTING QUIETLY IN BED.
[2023-12-15 20:09] LABS: HEPATITIS B SURFACE ANTIBODY <3.10 IU/L
[2023-12-15 20:19] LABS: HEPATITIS B SURFACE ANTIGEN Negative (Negative)
[2023-12-15 20:46] LABS: HEPATITIS C AB CIA INTERP Negative (Negative); HEPATITIS C ANTIBODY CIA INDEX 0.05 IV
[2023-12-15 20:47] LABS: HEPATITIS B CORE ANTIBODY,IGM Negative (Negative)
--- NOTE | 2023-12-15 21:52 | NUR ---
ASSUMPTION OF CARE: RECEIVED REPORT FROM JEFF BAIRD AT 1900. PT INTUBATED AND SEDATED ON 25 MCG/KG/MIN OF PROPOFOL WITH FENTANYL AN ADJUNCT TO SEDATION. TURNED PROP DOWN TO 15 MCG/KG/MIN FOR INITIAL ASSESSMENT, PT OPENED EYES BUT WAS NOT FOLLOWING COMMANDS OR TRACKING. PT STARTED COUGHING UNCONTROLLABLY DESPITE FENT AND SUCTIONING. PROPOFOL TURNED BACK UP TO 25. PT APPEARS COMFORTABLE AT THIS TIME. VENT SETTINGS REMAIN UNCHANGED, SEE RT ASSESSMENT FOR DETAILS. SPO2 >90%. LUNGS COARSE IN THE UPPER LOBES AND CLEAR IN THE LOWER LOBES. ADVERTISING INTERNSHIP IN PLACE, SR WITH HR 60'S WHILE RESTING AND 90'S WITH STIMULATION. SBP RANGING FROM 140'S-150'S. TUBE FEED AT GOAL THROUGH OGT. LAZO IN PLACE, DRAINING TO GRAVITY YELLOW URINE. PICC TO AZEEM, PATENT AND INFUSING. POWERGLIDE TO EJNS, PATENT AND INFUSING. NO BM YET. BED LOWERED.
[2023-12-16] VITALS (80 sets, daily range): BP systolic 119–174; BP diastolic 72–110
[2023-12-16 02:15] LABS: IMMUNOGLOBULIN A 157 mg/dL (68-408); IMMUNOGLOBULIN G 1090 mg/dL (768-1632); IMMUNOGLOBULIN M 154 mg/dL (35-263)
[2023-12-16 04:26] LABS: Hematocrit 23.4 % (33.0-51.0); Hemoglobin 7.9 g/dL (11.5-16.0); Mean Corpuscular HGB 27.1 pg (26.0-34.0); Mean Corpuscular HGB Conc 33.8 g/dL (31.5-36.5); Mean Corpuscular Volume 80 fL (80-100); Mean Platelet Volume 8.8 fL (9.1-12.4); NRBC ABSOLUTE 0.02 K/mm3 (0.00-0.02); NRBC Auto 0.1 /100 WBC (0.0-0.2); Platelet Count 382 K/mm3 (150-400); RDW Coefficient Variation 17.4 % (11.7-14.2); RDW Standard Deviation 50.4 fL (35.1-46.3); Red Blood Cell Count 2.92 M/mm3 (3.80-5.20); White Blood Cell Count 18.33 K/mm3 (4.00-11.30)
--- NOTE | 2023-12-16 05:46 | NUR ---
SHIFT SUMMARY: PT REMAINS INTUBATED AND SEDATED ON 25 MCG/KG/MIN OF PROPOFOL. PT OPENS EYES BUT DOES NOT TRACK OR FOLLOW COMMANDS. PUPILS EQUAL, REACTIVE ALTHOUGH SLUGGISH. PT COUGHING FREQUENTLY T/O THE SHIFT DESPITE SUCTIONING AND MEDICATION PER EMAR. SECRETIONS FROM ET TUBE MORE HEARD AND THICK THIS MORNING. LUNGS REMAIN COARSE IN UPPER LOBES. SPO2 >90%. VENT SETTINGS UNCHANGED THIS SHIFT. AC/PC 24/8.0/45%. MACHINE ZIPPER TRIMMER IN PLACE, SR WITH HR 60'S-90'S. SBP STABLE T/O THE SHIFT. LAZO DRAINING TO GRAVITY, YELLOW URINE. NO BM. PICC REMAINS PATENT AND INFUSING. POWERGLIDE REMAINS PATENT AND INFUSING. TUBE FEED AT GOAL THROUGH OGT. PT AFEBRILE T/O THE SHIFT. BED LOW AND LOCKED.
[2023-12-16 06:13] LABS: Anion Gap 11 mmol/L (3-11); Blood Urea Nitrogen 59 mg/dL (8-24); Bun/Creatinine Ratio 96.6 (12.0-20.0); CO2, Blood 25 mmol/L (21-32); Calcium, Blood 8.4 mg/dL (8.5-10.1); Chloride, Blood 110 mmol/L (98-108); Creatinine, Blood 0.61 mg/dL (0.40-1.00); Glomerular Filtration Rate 96 (60-); Glucose, Blood 118 mg/dL (70-99); Magnesium, Blood 1.9 mg/dL (1.6-2.4); Phosphorus, Blood 1.5 mg/dL (2.5-4.9); Potassium, Blood 2.7 mmol/L (3.5-5.5); Sodium, Blood 143 mmol/L (136-145); Vancomycin, Random 21.6 ug/mL
[2023-12-16] MEDS ORDERED: Potassium Phosphate Dibasic 30 MM in Dextrose 5% 500 ML IV ONE (06:20)
--- NOTE | 2023-12-16 07:36 | NUR ---
CARE ASSUMPTION DURING BEDSIDE SHIFT REPORT W SHAE BAIRD THE PT IS AWAKE AND COMMUNICATING W STAFF. PT IS VERY ANXIOUS, VERY DIAPHORETIC AND REPORTING SEVERE DISOMFORT IN HIS ABDOMEN. BP'S SOFT W MAP >65. MONITOR SHOWING ST 140'S-150. RR IN THE 40'S. PT W MILD MOTTLING IN BLE'S. D5W W BICARB INFUSING AT 100ML/HR. PROTONIX GTT INFUSING AT 10ML/HR. MAG SULFATE AT 100ML/HR. DR. COLMENARES AT BEDSIDE ASSESSING THE PT. PLAN TO INTUBATE THE PT.
[2023-12-16 09:00] LABS: Base Excess Venous 1.9 mmol/L; Bicarbonate Venous 25.8 mmol/L (24.0-30.0); PCO2 Venous 36 mmHg (38-42); pH Blood Venous 7.46 (7.34-7.37)
[2023-12-16] MEDS ORDERED: Potassium Chloride 20 MEQ/15 ML UDC PO SCH (10:00)
[2023-12-16 14:20] LABS: Phosphorus, Blood 2.5 mg/dL (2.5-4.9)
--- NOTE | 2023-12-16 14:26 | NUR ---
ASSUMING CARE OF PT FROM JEFF BAIRD.
--- NOTE | 2023-12-16 14:50 | NUR ---
ASSUMED CARE ASSUMED CARE OF THIS PATIENT ALONG WITH PATIENTS PRIMARY RN JEFF AT 0700, BEDSIDE SHIFT REPORT RECEIVED FROM BRIE HAYWARD. PATIENT INTUBATED AND SEDATED TO START SHIFT, PROPOFOL INFUSING AT 25, VENT SETTINGS AC/PC 24/8/40%, O2 SAT>90%. PATIENT RESTING COMFORTABLY, NOT FOLLOWING COMMANDS OR RESPONDING TO PAINFUL STIMULI, WILL OCCASIONALLY OPEN EYES TO VERBAL STIMULI, NOT TRACKING. SBP IN THE 140'S, HR IN 60'S WITH NSR. PROPOFOL BEING TITRATED BY PRIMARY RN.
--- NOTE | 2023-12-16 18:12 | NUR ---
SHIFT SUMMARY PT REMAINS INTUBATED AND LIGHTLY SEDATED c PRECEDEX. PT ALERT TO SELF, ABLE TO MOVE RIGHT ARM TO COMMAND, TRACKING STAFF IN ROOM, PULLS AWAY X 4 EXTREMITIES TO NOXIOUS STIMULI. VENT SETTINGS NOW AC/VC-20/360/35/8 c SATS >95%. PRECEDEX @ 0.6. OGT c TF @ GOAL. TEMP PROBE LAZO DRAINING YELLOW URINE, PT AFEBRILE. NO BM THIS SHIFT. PLAN FOR POTENTIAL EXTUBATION TOMORROW. NURSE NOTIFY IN TO NOT MEDICATE c PRN PAIN MEDS AFTER 0700 FOR POSSIBLE EXTUBATION.
[2023-12-16 19:06] LABS: ALPHA 1 GLOBULIN 0.76 g/dL (0.19-0.46); ALPHA 2 GLOBULIN 0.83 g/dL (0.48-1.05); BETA GLOBULIN 0.67 g/dL (0.48-1.10); GAMMA 1.04 g/dL (0.62-1.51); TOTAL PROTEIN,SERUM 5.9 g/dL (6.3-8.2)
[2023-12-16] MEDS ORDERED: Vancomycin HCL 1,000 MG in NS 100 ML IV SCH (21:00)
--- NOTE | 2023-12-16 21:23 | NUR ---
ASSUMED CARE AT 1900 PATIENT IS INTUBATED AND SEDATED ON PRECEDEX, PRN FENTANYL GIVEN FOR BED BATH SO PATIENT WOULD TOLERATE VENT BETTER. PATIENT ORIENTED TO SELF, ABLE TO SLIGHTLY LIFT RIGHT ARM, WIGGLE LEFT FINGERS AND WIGGLE TOES BILATERALLY. VENT AC VC 20/380/8/35% RR 20, SP02 96%, LS CLEAR TO DIMINISHED. HR SB-SR 50s-60s, BP STABLE. OG WITH TF INF. TEMP LAZO PATENT AND DRAINING TO GRAVITY. BED BATH DONE AND PATIENT REPOSITIONED. WILL GO TO CT TONIGHT. PATIENT HAD SMALL SOFT BM, BROWN.
[2023-12-17] VITALS (36 sets, daily range): BP systolic 98–186; BP diastolic 65–105
[2023-12-17 03:19] LABS: BASOPHILS ABSOLUTE AUTO 0.02 K/mm3 (0.00-0.23); BASOPHILS PERCENT AUTO 0 % (0-2); EOSINOPHILS ABSOLUTE AUTO 0.45 K/mm3 (0.00-0.68); EOSINOPHILS PERCENT AUTO 2 % (0-6); Hemoglobin 8.6 g/dL (11.5-16.0); IMMATURE GRAN ABSOLUTE AUTO 0.35 K/mm3 (0.00-0.10); IMMATURE GRAN PERCENT AUTO 2 % (0-1); LYMPHOCYTES ABSOLUTE AUTO 1.42 K/mm3 (0.84-5.20); LYMPHOCYTES PERCENT AUTO 8 % (21-46); MONOCYTES PERCENT AUTO 3 % (4-13); Mean Corpuscular HGB 26.8 pg (26.0-34.0); Mean Corpuscular HGB Conc 33.1 g/dL (31.5-36.5); Mean Corpuscular Volume 81 fL (80-100); Mean Platelet Volume 8.7 fL (9.1-12.4); NEUTROPHILS ABSOLUTE AUTO 16.21 K/mm3 (1.96-9.15); NEUTROPHILS PERCENT AUTO 85 % (41-73); NRBC ABSOLUTE 0.03 K/mm3 (0.00-0.02); NRBC Auto 0.2 /100 WBC (0.0-0.2); Platelet Count 388 K/mm3 (150-400); RDW Coefficient Variation 17.7 % (11.7-14.2); RDW Standard Deviation 51.6 fL (35.1-46.3); Red Blood Cell Count 3.21 M/mm3 (3.80-5.20); White Blood Cell Count 19.05 K/mm3 (4.00-11.30)
[2023-12-17 03:51] LABS: Albumin/Globulin Ratio 0.6 (0.8-1.8); Bilirubin, Total 0.9 mg/dL (0.1-1.0); Bun/Creatinine Ratio 94.2 (12.0-20.0); Calcium, Blood 8.4 mg/dL (8.5-10.1); Creatinine, Blood 0.55 mg/dL (0.40-1.00); Globulin, Blood 3.3 g/dL (2.2-4.0); Magnesium, Blood 1.3 mg/dL (1.6-2.4); Phosphorus, Blood 1.5 mg/dL (2.5-4.9); Potassium, Blood 3.8 mmol/L (3.5-5.5); Total Protein, Blood 5.3 g/dL (6.4-8.2)
[2023-12-17] MEDS ORDERED: Magnesium Sulf 2 GM/Water 50ML 50 ML IV ONE (04:10)
[2023-12-17] MEDS ORDERED: Potassium Phosphate Dibasic 30 MM in NS 500 ML IV ONE (04:10)
--- NOTE | 2023-12-17 06:14 | NUR ---
SHIFT SUMMARY PATIENT REMAINS INTUBATED AND SEDATED ON VERSED AND PROPOFOL, TITRATING PROPOFOL DOWN THIS AM. PATIENT RESPONDS TO TOUCH, PULLS AT RESTRAINT BUT UNABLE TO FOLLOW COMMANDS. SP02 100% ON VENT AC VC 16/500/5/25%, LS CLEAR. HR SB 50s. BP STABLE. TUBE FEED SHUT OFF THIS MORNING AT APPROX [address] COLMENARES. TEMP LAZO PATENT AND DRAINING TO GRAVITY. PATIENT REPOSITIONED Q2 HOURS.
--- NOTE | 2023-12-17 06:22 | NUR ---
SHIFT SUMMARY PATIENT REMAINS INTUBATED AND SEDATED ON PRECEDEX, PATIENT OPENS EYES SPONTANEUOSLY AND FOLLOWS SIMPLE COMMANDS. PRN FENTANYL GIVEN FOR VENT COMPLIANCE, PATIENT UNABLE TO STOP COUGHING. SP02 95% ON VENT AC VC 20/380/8/40%, LARGE AMOUNT OF THICK HEARD/PINK SPUTUM FROM ETT. HR SR 70s, BP STABLE. TEMP LAZO PATENT AND DRAINING TO GRAVITY. PATIENT HAD TWO BMs THIS SHIFT. TUBE FEED PLACED ON HOLD AT APPROX [address] COLMENARES.
[2023-12-17 06:29] LABS: QUANTIFERON MITOGEN MINUS NIL 0.46 IU/mL; QUANTIFERON NIL 0.01 IU/mL; QUANTIFERON PLUS TB2 MINUS NIL 0.01 IU/mL (<=0.34)
[2023-12-17] MEDS ORDERED: EPINEPHrine HCL 11.25 MG/0.5 ML VIAL INH ONE (08:30)
[2023-12-17] MEDS ORDERED: Morphine Sulfate 4 MG/1 ML Injection ONE (08:31)
[2023-12-17] MEDS ORDERED: Morphine Sulfate 4 MG/1 ML Injection IV PRN (08:40)
--- NOTE | 2023-12-17 08:54 | NUR ---
CARE OF PT ASSUMED AT 0700. BEDSIDE REPORT TAKEN. PT INITIALLY ON AC/VC 20/360/40%/8. RT AT BEDSIDE THIS AM; VENT ALARMING "DISCONNECTED". PT BAGGED BY RT WITHOUT RESISTANCE. DR CHAMPAGNE AT BEDSIDE WELL. PRECEDEX STOPPED. PT AWAKE AND MAINTENANCE SHOP CLERK HAND TO COMMAND. PT EXTUBATED AT [address] COLMENARES TO 6L 02 VIA N/C. PT APPEARED TO BE IN RESP DISTRESS WITH LABORED BREATHING, SOME STRIDOR, LARGE AMT OF THICK SECRETIONS PT UNABLE TO CLEAR W/O ASSIST. PT CHANGED TO 100% NRB, THEN TO AIRVO. PT ABLE TO SPEAK AND FOLLOW COMMANDS, SUCH HOLD UP ONE FINGER, THAN 2, SUCCESSFULLY. WHEN ASKED IF PT WOULD WANT TUBE REPLACED TO HELP HER BREATH, PT STATED NO CONTINUOUSLY. WHEN PT TOLD SHE MAY PASS WITHOUT INTUBATION SHE SAID YES, OKAY. PT STATED "THANK YOU FOR BEING THERE FOR ME" PT ALSO INDICATED THAT SHE HAD A BM. PT CONTINUED TO HAVE LABORED BREATHING, MS 4MG GIVEN PER DR COLMENARES. STAFF WAS ABLE TO CONTACT PT'S DAUGHTER AFTER SEVERAL ATTEMPTS AT 0900; DR COLMENARES SPEAKING W DAUGHTER NOW.
[2023-12-17] MEDS ORDERED: LORazepam 2 MG/ML 1ML Injection IV PRN (09:20)
[2023-12-17] MEDS ORDERED: Morphine Sulfate 10 MG/ML 1MLSYR IV PRN (09:20)
[2023-12-17] MEDS ORDERED: Atropine Sulfate 1% Opth Soln 2ML BTL SL PRN (09:25)
--- NOTE | 2023-12-17 10:26 | NUR ---
"Spiritual Care | Confort care visit. Pt. has been extubated and is now on comfort care. Pt. will likely not have family at bedside, as COREY is a daughter who is in [place]. This battery engineer gave an end of life blessing for the Pt. who does identify as a person of ceci. Will remain available to Pt. and staff."
[2023-12-17] MEDS ORDERED: EPINEPHrine HCL 11.25 MG/0.5 ML VIAL INH SCH (12:00)
--- NOTE | 2023-12-17 15:45 | NUR ---
Assumed care of patient at approximately 0915. Pt on comfort measures. Repositioned patient, provided oral care. Prn pain medications given. Report received from offgoing RN.
--- NOTE | 2023-12-17 16:40 | NUR ---
In patient room several times this afternoon for NG suctioning. Pt appears to be struggling with secretions and is too weak to clear them on her own. Pt resting easier after suctioning.
--- NOTE | 2023-12-17 17:35 | NUR ---
Transferred patient to medical floor room# [id number]. Report given to medical floor RN. All personal belongings sent with patient.
--- NOTE | 2023-12-17 17:54 | NUR ---
ASSUMED CARE NOTE RECEIVED REPORT FROM DECORATIVE CUTTING MACHINE TENDER CHU AND ASSUMED CARE OF PT AT APPROX 1717. PT ON COMFORT CARE AND ABLE TO OPEN EYES TO VERBAL AND PAINFUL STIMULI, BUT UNABLE TO ANSWER QUESTIONS AND OR FOLLOW COMMANDS. PT HAS LAZO CATH IN PLACE AND IS ON 15L O2 HIGH FLOW/AIRVO. PT MEDICATED PRIOR TO ARRIVAL BY DECORATIVE CUTTING MACHINE TENDER. CALL LIGHT PLACED WITHIN REACH.
[2023-12-18] MEDS ORDERED: Scopolamine Hydrobromide Patch TD ONE (05:30)
--- NOTE | 2023-12-18 05:48 | NUR ---
Pt on comfort care. She gets tachypnic and restless but responds well to ativan and morphine. Frequent oral care done. Frequent yankour oral suctioning to clear large amounts of tavarez/pink sputum. Turned q2 hours. Pt cannot answer questions but opens eyes and moans when meds wear off. Received new order for scopalamine patch for secretions. Spoke with daughter Zay on the phone and updated. She was happy with plan of care. She would like to to speak with day shift MD.
[2023-12-18] MEDS ORDERED: SODIUM CHLORIDE IV SCH (12:00)
[2023-12-18] MEDS ORDERED: RITUXIMAB IV SCH (12:00)
--- NOTE | 2023-12-18 14:59 | NUR ---
"Spiritual Care | Comfort Care Pt. is comfort care and is not responsive. No family are present. Prayed a blessing over the Pt. Will remain available to Pt."
--- NOTE | 2023-12-18 18:31 | NUR ---
SHIFT SUMMARY PT ON 10L HIGH FLOW, BRADYPNEIC, UNRESPONSIVE, AND LAZO IN PLACE. PT MEDICATED PER EMAR W/ MORPHINE, ATIVAN, AND ATROPINE. SUCTION PROVIDED PRN. THIS NURSE SPOKE W/ PT'S BROTHER AND PROVIDED UPDATES.
[2023-12-18] MEDS ORDERED: EPINEPHrine HCL 11.25 MG/0.5 ML VIAL INH PRN (22:35)
--- NOTE | 2023-12-19 03:34 | NUR ---
ENLISTED AIRCREW/AERIAL OBSERVER/GUNNER SUMMARY REMAINS ON COMFORT CARE. REPOSITIONED AND PAIN MEDS/ATIVAN ADMIN FOR COMFORT - SEE MAR FOR DETAILS. HOB ELEVATED AND ORAL CARE/SUCTIONING DONE TO HELP WITH BREATHING, ETC. DAUGHTER CALLED FROM [place], ASKED FOR UPDATE AND TO ASK THAT SHE BE NOTIFIED IF/WHEN SHE PASSED. HAS BEEN RESTING WITH BREATHS RAPID AND SLOW AT INTERVALS AND SOME MOANS -( SEE MAR FOR DETAILS FOR MED FOR PAIN, AND ANXIETY). CURRENTLY RESTING QUIETLY WITHOUT NOTED DISTRESS. RAILS UP X 2, CALL LIGHT IN REACH AND BED IN LOW POSITOIN FOR SAFETY. WILL CONTINUE TO MONITOR
--- NOTE | 2023-12-19 18:34 | NUR ---
SHIFT SUMMARY PT ON 10L HIGH FLOW, BRADYPNEIC AND TACHPNEIC AT TIMES, UNRESPONSIVE, AND LAZO IN PLACE. PT MEDICATED PER EMAR W/ MORPHINE, ATIVAN, AND ATROPINE. SUCTION PROVIDED PRN.
--- NOTE | 2023-12-20 04:31 | NUR ---
SHIFT SUMMARY COMFORT CARE PATIENT. UNRESPONSIVE WITH CARE. CONTINUING WITH 10L HIGH FLOW OXYGEN. PRN SUCTION D/T EXCESSIVE SECREATIONS. MEDICATED PER EMAR FOR PAIN USING FLACC SCALE. LAZO IN PLACE DRAINING TEA COLORED URINE. Q2 REPOSITIONING. BED IN LOWEST POSITION AND CALL LIGHT IN REACH.
--- NOTE | 2023-12-20 14:15 | NUR ---
SHIFT SUMMARY PT ON COMFORT CARE, HAS REMAINED MOSTLY UNRESPONSIVE. MOANS WITH REPOSITIONING. ORAL SUCTIONING DONE NEEDED, BUT INEFFECTIVE. ATROPINE GIVEN PER EMAR WITH GOOD EFFECT. VISITOR TO THIS AM FOR A SHORT WHILE. PT ALLOWING ORAL CARE TO PRESENT. RESTING QUIETLY AT THIS TIME; NO S/SX'S OF DISTRESS NOTED. WILL CONTINUE TO MONITOR.
--- NOTE | 2023-12-21 04:32 | NUR ---
SHIFT SUMMARY COMFORT CARE PT. MEDICATED PER EMAR T/O NIGHT FOR COMFORT. DAUGHTER CALLED AND WAS GIVEN UPDATE. LAZO IN PLACE AND DRAINING TEA COLORED URINE. BARRIER CREAM AND FOAM DRESSING PLACED ON COCCYX. BREATHING NOTED TO BE MORE IRREGULAR WITH OCCSIONAL SHORT PAUSES. MARK-ARMENTA BRETHING NOTED AROUND 0400. TURNED Q2. BED IN LOWEST POSITION AND CALL LIGHT NEAR PT WITH CALM MUSIC PLAYING.
[2023-12-21] MEDS ORDERED: Morphine Sulfate 20 MG/1ML 1 ML Oral Syringe SL PRN (09:30)
--- NOTE | 2023-12-21 12:42 | NUR ---
PT PASSED AT 12:35. NOTIFIED [facility] TO CONFIRM. NOTIFIED DR PLUMMER @ 12:36. ATTEMPTED TO NOTIFY PT'S DAUGHTER @ 12:38; LEFT MESSAGE TO RETURN CALL TO DESK. ATTEMPTED TO CALL SON @ 12:40; NO ANSWER AND UNABLE TO LEAVE MESSAGE. NAV RN TO NOTIFY NRS. [employer].
--- NOTE | 2023-12-21 13:58 | NUR ---
rtecords sent to organ donor as requested to Ton at [phone].
--- NOTE | 2023-12-21 17:39 | NUR ---
ALL FAMILY EVENTUALLY NOTIFIED; PT'S DAUGHTER, SON, AND BROTHER, WHO ALSO NOTIFIED FRIENDS. FRIENDS HERE TO OBTAIN BELONGINGS, PER DAUGHTER MELISSA, FROM [facility] NOTIFIED AND HERE TO RECEIVE BODY AT 1450.
== END 2023-12-21 12:05 | DRG 207 ==
LOC: ER 20:08 → PCU 12-10 00:56 → ICUE 12-10 00:56 → MEDS 12-10 00:56 → PCU 12-10 01:49 → ICUE 12-11 22:25 → MEDS 12-17 17:18
PROVIDERS: Emergency Medicine; Family Medicine; Internal Medicine; Internal Medicine Critical Care Medicine; Nurse Practitioner Acute Care; Student in an Organized Health Care Education/Training Program; ADMIT Internal Medicine
PROC: 30233N1 Transfusion of Nonautologous Red Blood Cells into Peripheral Vein, Percutaneous Approach (ICD-10-PCS; 2023-12-10)
PROC: 5A0935A Assistance with Respiratory Ventilation, Less than 24 Consecutive Hours, High Flow/Velocity Cannula (ICD-10-PCS; 2023-12-11)
PROC: 4A133R1 Monitoring of Arterial Saturation, Peripheral, Percutaneous Approach (ICD-10-PCS; 2023-12-11)
PROC: 5A1955Z Respiratory Ventilation, Greater than 96 Consecutive Hours (ICD-10-PCS; principal; 2023-12-12)
PROC: 0BH17EZ Insertion of Endotracheal Airway into Trachea, Via Natural or Artificial Opening (ICD-10-PCS; 2023-12-12)
PROC: 3E033XZ Introduction of Vasopressor into Peripheral Vein, Percutaneous Approach (ICD-10-PCS; 2023-12-12)
PROC: 02HV33Z Insertion of Infusion Device into Superior Vena Cava, Percutaneous Approach (ICD-10-PCS; 2023-12-12)
PROC: 0T9B70Z Drainage of Bladder with Drainage Device, Via Natural or Artificial Opening (ICD-10-PCS; 2023-12-12)
PROC: 5A0945A Assistance with Respiratory Ventilation, 24-96 Consecutive Hours, High Flow/Velocity Cannula (ICD-10-PCS; 2023-12-17)
DX: J18.9 Pneumonia, unspecified organism (principal); J96.01 Acute respiratory failure with hypoxia; G93.41 Metabolic encephalopathy; R04.89 Hemorrhage from other sites in respiratory passages; M31.30 Wegener's granulomatosis without renal involvement; N39.0 Urinary tract infection, site not specified; E87.29 Other acidosis; D62 Acute posthemorrhagic anemia; Z51.5 Encounter for palliative care; Z66 Do not resuscitate; E87.6 Hypokalemia; E83.42 Hypomagnesemia; I10 Essential (primary) hypertension; J32.9 Chronic sinusitis, unspecified; D50.9 Iron deficiency anemia, unspecified; E78.5 Hyperlipidemia, unspecified; E83.39 Other disorders of phosphorus metabolism; R53.1 Weakness; Z86.73 Personal history of transient ischemic attack (TIA), and cerebral infarction without residual deficits; Z79.82 Long term (current) use of aspirin; Z88.0 Allergy status to penicillin; Z79.899 Other long term (current) drug therapy
CPT/HCPCS: 0241U; 31500; 31720; 36415; 36430; 36569; 36600; 51702; 70450; 71045; 71046; 71260; 80048; 80053; 80069; 80202; 81001; 82043; 82330; 82784; 82803; 82947; 83516; 83605; 83735; 83880; 84100; 84132; 84145; 84155; 84165; 84484; 85014; 85018; 85025; 85027; 85610; 85651; 85730; 86036; 86038; 86039; 86140; 86480; 86705; 86803; 86850; 86900; 86901; 86923; 87040; 87070; 87086; 87205; 87340; 87389; 87449; 87633; 93005; 93010; 93306; 94002; 94003; 94640; 94660; 94664; 94760; 94762; 96361; 96365; 96365-59; 96375; 99285-25; A9270; C1751; C9113; J0692; J0696; J1885; J1940; J1956; J2060; J2270; J2405; J2704; J2919; J3010; J3370; J3475; J3480; J7030; J7040; J7050; J7060; P9016; P9047; Q9967